=== PATIENT | female | born 1945 | race Caucasian/White ===

== ENCOUNTER 2017-06-22 08:57 | Outpatient (CLI) ==
[2014-01-21 21:22] VITALS: BMI 36.9
== END 2017-06-22 08:58 | disposition home or self-care (01) ==
LOC: RAD 08:57
PROVIDERS: ATTEND Family Medicine
DX: Z12.31 Encounter for screening mammogram for malignant neoplasm of breast (principal)
CPT/HCPCS: 77067

== ENCOUNTER 2017-08-13 10:52 | Outpatient (CLI) ==
[2014-01-21 21:22] VITALS: BMI 36.9
== END 2017-08-13 10:53 | disposition home or self-care (01) ==
LOC: LAB 10:52
PROVIDERS: ATTEND Family Medicine
DX: R19.7 Diarrhea, unspecified (principal)
CPT/HCPCS: 87493

== ENCOUNTER 2017-12-21 15:59 | Outpatient (CLI) | payer OTHER ==
[2014-01-21 21:22] VITALS: BMI 36.9
== END 2017-12-21 16:00 | disposition home or self-care (01) ==
LOC: FCC-LAB 15:59
PROVIDERS: ATTEND Family Medicine
DX: E11.9 Type 2 diabetes mellitus without complications (principal)
CPT/HCPCS: 36415; 83037

== ENCOUNTER 2017-12-31 14:00 | Outpatient (RCR) ==
[2014-01-21 21:22] VITALS: BMI 36.9
--- NOTE | 2017-12-17 11:48 | RS.OPPTEV2 ---
Date of Note: 12/15/17 Visit #: 1 Date of Evaluation: 12/15/17 Payer Source: MEDICARE Surgery Performed?: No Treatment Diagnosis: chronic low back pain, recurrent falls History of Condition/Mechanism of Injury:: pt reports she has had a long history of low back pain. pt did have a fall a couple of weeks ago caused by young granddaughter getting in her path. 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 Functional Limitations: Sleep, Reaching, Pushing, Pulling, Lifting, Carrying, Standing, Squatting, Ambulation, Community Access/Integration Current Subjective/complaints:: pt states her biggest limitation is being unable to stand or walk for more than a couple of mins due to low back pain, R worse than L. pt report she is scheduled to have R total shld replacement on . Treatment Side (optional): N/A *Precautions: try to avoid bending, lifting, and twisting Medical History Medical History: Hypertension, Diabetes, Arthritis Surgical History: Knee Replacement (RTKR), Shoulder Replacement (L total shld), Lumbar Spine (5 back surgeries), Cholecystectomy Smoking Status: Never smoker Hx Home Medications: aspirin, avapro, calcium/D3, furosemide, klor-con, vit d3, levothyroxine, metformin, atorvastatin, buspirone, vit B complex, omeprazole, duloxetine, colestipel, nucynta ER, gralise ER, zaneflex, diclofenac, citalopram , fioricet Patient's Goals: be able to stand and walk better with less pain. Pain Assessment - Pain Description Pain Location: lumbar area, R SI Pain Description: Tightness, Aching Current Pain Intensity: 1-2/10 at rest, increases to 5/10 with standing Functional Outcome Measure Oswestry LBP: 32 (64%) - G Codes & Severity Modifier G Codes & Modifier: mobility current CL. mobility goal CJ Source of G Code score: oswestry low back pain scale Observation - Observation Inspection: pt with increased hamstring and piriformis tightness R worse than L, Posture: Forward Head, Rounded Shoulders, Increased Thoracic Kyphosis, Decreased Lumbar Lordosis Handedness: Right Gait - Gait Pattern General Gait Pattern Observation: Crouched Gait, Decrease Stride Lngth (R), Decrease Stride Lngth (L) Gait Comments: pt amb with flexed posture, decreased step length, General Range of Motion: WFL's BLE. LUE WFL's. RUE shld flex limted as well as abd limited (pt scheduled to have total shoulder 02/02/18). Cervical ROM WFL's without pain Muscle Strength: LUE 4+/5 , RUE shld flex 3-/5, elbow flex/ext 4/5. BLE 4+/5 - ROM Lumbar Flexion: Hand reach to Mid-Thighs Sidebending to Left: Reach to Lateral Joint Line Sidebending to Right: Reach to Lateral Joint Line Lumbar Spine ROM Limitations: Soft Tissue Tightness, Muscle Weakness, Pain - Strength Trunk Extension: 4- Good- Trunk Flexion: 3+ Fair+ Trunk Lateral Flexion: 3+ Fair+ - Special Tests SLR Test: Positive Right Seated Dural Stretch Test: Positive Right Palpation Palpation Findings: Tenderness, Trigger Point, Muscle Guarding Comments:: pt with tenderness over R SI, trigger points also noted in R lumbosacral area, muscle guarding lumbar paraspinal muscles. Sensation - Sensation Right Upper Extremity: Intact/Normal Left Upper Extremity: Intact/Normal Right Lower Extremity: Intact/Normal Left Lower Extremity: Intact/Normal Balance - Sitting Balance Static Sitting Balance: Normal Dynamic Sitting Balance: Good - Standing Balance Static Standing Balance: Good Dynamic Standing Balance: Fair - Comments Balance Assessment Comments: pt with difficulty maintaining standing balance with sternal nudges - Heat/Cryotherapy Treatment: Cryotherapy Comments:: R lumbosacral area Interventions - Exercise/Activities/Manual Therapy Exercises/Activities: pt performed pelvic tilts, resisted hip flex, isometric hip add Manual Therapy: n/a HOME EXERCISE PROGRAM: pt given written HEP including pelvic tilts, lumbar rotation, resisted hip flex, isometric hip add. - Charges Timed Code Treatment Minutes: 56 Total Treatment Time: 62 Procedures billed for this date of service:: reginald gong cp EVALUATION COMPLEXITY LEVEL EVALUATION COMPLEXITY LEVEL: HISTORY: Medium (DM, HTN, OA, LBP), EXAM OF BODY SYSTEMS: Medium (pain, posture, strength,, balance, ), CLINICAL PRESENTATION: Medium (evolving), CLINICAL DECISION MAKING: Medium Assessment Assessment: pt presents with increased muscle tightness B hamstrings, piriformis R worse than L. pt also with pain R lumbar area with decreased posture, decreased endurance with standing and amb due to pain. Patient Education: Home Exercise Program, Education of Plan of Care Rehab Potential: Good Short Term Goals Goal #1: pt rate pain < 5 with activity Goal to be met by: 01/05/18 Goal #2: pt able to perform standing activities x 4 mins w/o rest w decreased pain Goal to be met by: 01/05/18 Goal #3: Decreased hamstring tightness R equal to L Goal to be met by: 01/05/18 Goal #4: pt independent with initial HEP Goal to be met by: 01/05/18 Wire Rope Sling Maker Goals Goal #1: pt rate pain <2 with activity Goal to be met by: 01/26/18 Goal #2: pt report ability to stand long enough to complete household task Goal to be met by: 01/26/18 Goal #3: pt able to amb functional community distances w rwx independently w/o rest Goal to be met by: 01/26/18 Plan - Treatment to be Provided Procedures: Therapeutic Exercises, Therapeutic Activity, Manual Therapy, Massage , Patient Education Modalities: Electrical Stimulation, Class IV Laser, Cryotherapy, Hot Packs - Treatment Plan Frequency: 2-3x week Duration: 6 weeks ORDER # VISITS AND/OR THROUGH DATE: 01/26/18 - Treatment Code (1) Recurrent falls Code(s): R29.6 - REPEATED FALLS (2) Low back pain Code(s): M54.5 - LOW BACK PAIN Qualifiers: Chronicity: chronic Back pain laterality: right Sciatica presence: without sciatica Qualified Code(s): M54.5 - Low back pain; G89.29 - Other chronic pain; G89.29 - Other chronic pain (3) Difficulty walking Code(s): R26.2 - DIFFICULTY IN WALKING, NOT ELSEWHERE CLASSIFIED
--- NOTE | 2017-12-17 14:44 | RS.CXNS ---
Date of scheduled appointment: 12/17/17 Type: Cancel
--- NOTE | 2017-12-21 11:21 | RS.CXNS ---
Date of scheduled appointment: 12/21/17 Type: Cancel
--- NOTE | 2017-12-22 10:48 | RS.CXNS ---
Date of scheduled appointment: 12/22/17 Type: Cancel Reason for Cancel/NS: Patient is in the hospital
--- NOTE | 2017-12-25 09:26 | RS.CXNS ---
Date of scheduled appointment: 12/25/17 Type: Cancel Reason for Cancel/NS: Didn't feel up to therapy today. Plan to discharge as this is her 4th cancellation and has not been seen since eval.
--- NOTE | 2017-12-28 15:15 | RS.OPPTDN ---
Subjective Date of Note: 12/28/17 Visit #: 2 Date of Evaluation: 12/15/17 Payer Source: MEDICARE Treatment Diagnosis: chronic low back pain, recurrent falls Current Subjective/complaints:: Patient says she has only gotten to try exercises once due to being in the hospital, welcoming new grandchild and babysitting. She says that she has back pain to both sides that is unchanged from eval date. *Precautions: try to avoid bending, lifting, and twisting Interventions - Exercise/Activities/Manual Therapy Exercises/Activities: Patient receives passive stretching of SKTC, HS, piriformis, fig 4, and lower trunk rotation x 3 bilaterally. She performs: QS , SAQ 1 1/2#, DF with red tband, isometric hip abd/flexion, pelvic tilts, pillow squeezes 2x10. Sitting EOB: shoulder shrugs and red tband scap retraction. Total minutes of Exercise: 38 Manual Therapy: n/a HOME EXERCISE PROGRAM: pt given written HEP including pelvic tilts, lumbar rotation, resisted hip flex, isometric hip add. - Charges Timed Code Treatment Minutes: 38 Total Treatment Time: 38 Procedures billed for this date of service:: ex3 Assessment: Patient demo tightness to bilateral HS, calves, and piriformis. She is able to rebecca therex well today with only muscle fatigue. She was instructed in proper postural techniques and HEP review. Also, safety with rollator. Patient Education: Education of diagnosis, Body/Joint mechanics, Home Exercise Program, Education of Plan of Care Patient demonstrates compliance with HEP?: Yes Short Term Goals Goal #1: pt rate pain < 5 with activity Goal to be met by: 01/05/18 Goal #2: pt able to perform standing activities x 4 mins w/o rest w decreased pain Goal to be met by: 01/05/18 Goal #3: Decreased hamstring tightness R equal to L Goal to be met by: 01/05/18 Goal #4: pt independent with initial HEP Goal to be met by: 01/05/18 Detention Goals Goal #1: pt rate pain <2 with activity Goal to be met by: 01/26/18 Goal #2: pt report ability to stand long enough to complete household task Goal to be met by: 01/26/18 Goal #3: pt able to amb functional community distances w rwx independently w/o rest Goal to be met by: 01/26/18 Plan PLAN OF CARE EXPIRES ON:: 01/26/18 ORDER # VISITS AND/OR THROUGH DATE: 01/26/18 PLAN: Patient to continue for therex to improve back pain and provide strength with bal/gait.
--- NOTE | 2017-12-31 16:32 | RS.OPPTDN ---
Subjective Date of Note: 12/31/17 Visit #: 3 Date of Evaluation: 12/15/17 Payer Source: MEDICARE Treatment Diagnosis: chronic low back pain, recurrent falls Current Subjective/complaints:: Patient says she was slightly sore in her legs after her previous session. She says she has started to consistently perform HEP. *Precautions: try to avoid bending, lifting, and twisting Pain Assessment - Pain Description Pain Location: low back Interventions - Exercise/Activities/Manual Therapy Exercises/Activities: Patient receives passive stretching of SKTC, HS, piriformis, fig 4, heel cords, and lower trunk rotation x 3 bilaterally. She performs: QS, SAQ 1 1/2#, DF with red tband, isometric hip abd/flexion, pelvic tilts, pillow squeezes 2x10. Sitting EOB: shoulder shrugs and red tband scap retraction. Standing at railing: hip abd, marching, heel raises all x 10. Total minutes of Exercise: 38 Manual Therapy: n/a HOME EXERCISE PROGRAM: pt given written HEP including pelvic tilts, lumbar rotation, resisted hip flex, isometric hip add. - Charges Timed Code Treatment Minutes: 38 Total Treatment Time: 38 Procedures billed for this date of service:: ex3 Assessment: Patient able to rebecca all therex well without increasing back or LE pain or causing LOB with dynamic activity. She is becoming more aware of HEP and appears to be motivated to improve. Patient Education: Body/Joint mechanics, Home Exercise Program Patient demonstrates compliance with HEP?: Yes Short Term Goals Goal #1: pt rate pain < 5 with activity Goal to be met by: 01/05/18 Progress towards Goal:: Progressing Goal #2: pt able to perform standing activities x 4 mins w/o rest w decreased pain Goal to be met by: 01/05/18 Progress towards Goal:: Progressing Goal #3: Decreased hamstring tightness R equal to L Goal to be met by: 01/05/18 Progress towards Goal:: Progressing Goal #4: pt independent with initial HEP Goal to be met by: 01/05/18 Account Supervisor Goals Goal #1: pt rate pain <2 with activity Goal to be met by: 01/26/18 Goal #2: pt report ability to stand long enough to complete household task Goal to be met by: 01/26/18 Goal #3: pt able to amb functional community distances w rwx independently w/o rest Goal to be met by: 01/26/18 Plan PLAN OF CARE EXPIRES ON:: 01/26/18 ORDER # VISITS AND/OR THROUGH DATE: 01/26/18 PLAN: Patient to continue for general strengthening for LE's advancing with dynamic activity.
== END 2018-01-04 23:59 ==
PROVIDERS: ATTEND Family Medicine
DX: R29.6 Repeated falls (principal); M54.5 Low back pain; M54.2 Cervicalgia; M25.511 Pain in right shoulder; G89.29 Other chronic pain

== ENCOUNTER 2018-01-07 11:24 | Outpatient (CLI) | payer OTHER ==
[2016-04-28 09:01] VITALS: BMI 36.9
== END 2018-01-07 11:25 | disposition home or self-care (01) ==
LOC: FCC-LAB 11:24
PROVIDERS: ATTEND Family Medicine
DX: R50.9 Fever, unspecified (principal); R51 Headache; R42 Dizziness and giddiness; R41.0 Disorientation, unspecified
CPT/HCPCS: 36415; 80053; 85025; 87804

== ENCOUNTER 2018-01-19 10:00 | Outpatient (RCR) ==
[2016-04-28 09:01] VITALS: BMI 36.9
--- NOTE | 2018-01-05 15:06 | RS.CXNS ---
Date of scheduled appointment: 01/05/18 Type: Cancel
--- NOTE | 2018-01-06 11:25 | RS.OPPTDN ---
Subjective Date of Note: 01/06/18 Visit #: 4 Date of Evaluation: 12/15/17 Payer Source: MEDICARE Treatment Diagnosis: chronic low back pain, recurrent falls Current Subjective/complaints:: Patient says her legs have been really sore and did not feel well yesterday. She says she nearly cancelled today, but knew she needed therapy. *Precautions: try to avoid bending, lifting, and twisting Pain Assessment - Pain Description Pain Location: bilateral LEs Interventions - Exercise/Activities/Manual Therapy Exercises/Activities: Patient receives passive stretching of SKTC, HS, piriformis, fig 4, heel cords, and lower trunk rotation x 3 bilaterally. She performs: QS, SAQ 1 1/2#, DF with red tband, isometric hip abd/flexion, pelvic tilts, pillow squeezes 2x10. Bridging, SLR (x8), hip abd with red tband all 2x10. Standing: shoulder shrugs, 1# wand for bilateral shoulder flexion and red tband scap retraction. Omitted other standing exercises due to increased LE soreness. Total minutes of Exercise: 38 Manual Therapy: n/a HOME EXERCISE PROGRAM: pt given written HEP including pelvic tilts, lumbar rotation, resisted hip flex, isometric hip add. - Charges Timed Code Treatment Minutes: 38 Total Treatment Time: 38 Procedures billed for this date of service:: ex3 Assessment: Patient experiencing elevated soreness to both legs yesterday and today. She is able to perform all therex, but needed rest time. Increased tightness to the R hamstrings and weaker with SLR today. She had some difficulty maintaining bal during standing scap retraction. Patient Education: Home Exercise Program, Education of Plan of Care Patient demonstrates compliance with HEP?: Yes Short Term Goals Goal #1: pt rate pain < 5 with activity Goal to be met by: 01/05/18 Progress towards Goal:: Progressing Goal #2: pt able to perform standing activities x 4 mins w/o rest w decreased pain Goal to be met by: 01/05/18 Progress towards Goal:: Progressing Goal #3: Decreased hamstring tightness R equal to L Goal to be met by: 01/05/18 Progress towards Goal:: Progressing Goal #4: pt independent with initial HEP Goal to be met by: 01/05/18 Resolution Expert Goals Goal #1: pt rate pain <2 with activity Goal to be met by: 01/26/18 Goal #2: pt report ability to stand long enough to complete household task Goal to be met by: 01/26/18 Goal #3: pt able to amb functional community distances w rwx independently w/o rest Goal to be met by: 01/26/18 Plan PLAN OF CARE EXPIRES ON:: 01/26/18 ORDER # VISITS AND/OR THROUGH DATE: 01/26/18 PLAN: Patient to continue with progressive therex to bilateral LE's to improve bal and strength.
--- NOTE | 2018-01-07 14:25 | RS.CXNS ---
Date of scheduled appointment: 01/07/18 Type: No Show
--- NOTE | 2018-01-12 13:11 | RS.OPPTDN ---
Subjective Date of Note: 01/12/18 Visit #: 4 Date of Evaluation: 12/15/17 Payer Source: MEDICARE Treatment Diagnosis: chronic low back pain, recurrent falls Current Subjective/complaints:: Patient says she was sick last week and unable to attend. She reports her back is less painful and feels stronger in her legs. She states she is able to stand a little longer in her kitchen and working on laundry more. *Precautions: try to avoid bending, lifting, and twisting Interventions - Exercise/Activities/Manual Therapy Exercises/Activities: Patient receives passive stretching of SKTC, HS, piriformis, fig 4, heel cords, and lower trunk rotation x 3 bilaterally. She performs: QS, SAQ increased to 2#, DF increased to green tband, isometric hip abd/flexion, pelvic tilts, pillow squeezes 2x10. Bridging, SLR (x10), hip abd increased to green tband all 2x10. Standing: shoulder shrugs, 1# wand for bilateral shoulder flexion and red tband scap retraction. Standing at rail: marching, heel raises, hip abd, minisquats x 10. Total minutes of Exercise: 38 Manual Therapy: n/a HOME EXERCISE PROGRAM: pt given written HEP including pelvic tilts, lumbar rotation, resisted hip flex, isometric hip add. - Charges Timed Code Treatment Minutes: 38 Total Treatment Time: 38 Procedures billed for this date of service:: ex3 Assessment: Patient demo improved bal during all standing exercises and back pain is reduced allowing such activities as well as improved ease with household tasks. She demo increased strength progressing therex in the dept. Patient Education: Education of diagnosis, Body/Joint mechanics, Home Exercise Program, Home Safety, Education of Plan of Care Patient demonstrates compliance with HEP?: Yes Short Term Goals Goal #1: pt rate pain < 5 with activity Goal to be met by: 01/05/18 Progress towards Goal:: Progressing Goal #2: pt able to perform standing activities x 4 mins w/o rest w decreased pain Goal to be met by: 01/05/18 Progress towards Goal:: Progressing Goal #3: Decreased hamstring tightness R equal to L Goal to be met by: 01/05/18 Progress towards Goal:: Progressing Goal #4: pt independent with initial HEP Goal to be met by: 01/05/18 Line Locator Goals Goal #1: pt rate pain <2 with activity Goal to be met by: 01/26/18 Goal #2: pt report ability to stand long enough to complete household task Goal to be met by: 01/26/18 Goal #3: pt able to amb functional community distances w rwx independently w/o rest Goal to be met by: 01/26/18 Plan PLAN OF CARE EXPIRES ON:: 01/26/18 ORDER # VISITS AND/OR THROUGH DATE: 01/26/18 PLAN: Patient to continue BIW for progressive therex
--- NOTE | 2018-01-14 15:34 | RS.OPPTDN ---
Subjective Date of Note: 01/14/18 Visit #: 5 Date of Evaluation: 12/15/17 Payer Source: MEDICARE Treatment Diagnosis: chronic low back pain, recurrent falls Current Subjective/complaints:: Patient says she is gaining strength. She reports feeling therapy is helping her and she is continuing to work on HEP. *Precautions: try to avoid bending, lifting, and twisting Interventions - Exercise/Activities/Manual Therapy Exercises/Activities: Patient receives passive stretching of SKTC, HS, piriformis, fig 4, heel cords, and lower trunk rotation x 3 bilaterally. She performs: QS, SAQ increased to 2#, DF increased to green tband, isometric hip abd/flexion, pelvic tilts, pillow squeezes 2x10. Bridging, SLR 2x10), hip abd increased to green tband all 2x10. Standing: shoulder shrugs, increased to 2# wand for bilateral shoulder flexion and red tband scap retraction. LAQ 2#, hip flexion 2# x 10. Standing at rail: marching, heel raises, hip abd, minisquats x 10. Total minutes of Exercise: 38 Manual Therapy: n/a HOME EXERCISE PROGRAM: pt given written HEP including pelvic tilts, lumbar rotation, resisted hip flex, isometric hip add. - Charges Timed Code Treatment Minutes: 38 Total Treatment Time: 38 Procedures billed for this date of service:: ex3 Assessment: Patient improving with progressive exercises well. She demo improved ease with all therex. She is amb more steadily and having less back pain. Patient Education: Home Exercise Program, Home Safety, Education of Plan of Care Patient demonstrates compliance with HEP?: Yes Short Term Goals Goal #1: pt rate pain < 5 with activity Goal to be met by: 01/05/18 Progress towards Goal:: Met Goal #2: pt able to perform standing activities x 4 mins w/o rest w decreased pain Goal to be met by: 01/05/18 Progress towards Goal:: Met Goal #3: Decreased hamstring tightness R equal to L Goal to be met by: 01/05/18 Progress towards Goal:: Progressing Goal #4: pt independent with initial HEP Goal to be met by: 01/05/18 Progress towards Goal:: Progressing Senior Quality Assurance Specialist Goals Goal #1: pt rate pain <2 with activity Goal to be met by: 01/26/18 Goal #2: pt report ability to stand long enough to complete household task Goal to be met by: 01/26/18 Goal #3: pt able to amb functional community distances w rwx independently w/o rest Goal to be met by: 01/26/18 Plan PLAN OF CARE EXPIRES ON:: 01/26/18 ORDER # VISITS AND/OR THROUGH DATE: 01/26/18 PLAN: Patient to continue BIW for progressive therex
--- NOTE | 2018-01-19 11:36 | RS.OPPTDN ---
Subjective Date of Note: 01/19/18 Visit #: 6 Date of Evaluation: 12/15/17 Payer Source: MEDICARE Treatment Diagnosis: chronic low back pain, recurrent falls Current Subjective/complaints:: Patient says that she is working on exercises at home. She reports feeling stronger, but her back intermittently flares up. *Precautions: try to avoid bending, lifting, and twisting Interventions - Exercise/Activities/Manual Therapy Exercises/Activities: Patient continues with passive stretching of SKTC, HS, piriformis, fig 4, heel cords, and lower trunk rotation x 3 bilaterally. She performs: QS, SAQ increased to 2 1/2#, DF with green tband, isometric hip abd/ flexion, pelvic tilts, pillow squeezes 2x10. Bridging, SLR 2x10), hip abd green tband all 2x10. Standing: shoulder shrugs, increased to 2# wand for bilateral shoulder flexion and red tband scap retraction. LAQ 2#, hip flexion 2 # x 10. Standing at rail: marching, heel raises, hip abd, minisquats x 10. Made new handouts of exercises for patient per request. Gave green tband for home. Total minutes of Exercise: 38 Manual Therapy: n/a HOME EXERCISE PROGRAM: pt given written HEP including pelvic tilts, lumbar rotation, resisted hip flex, isometric hip add. - Charges Timed Code Treatment Minutes: 38 Total Treatment Time: 38 Procedures billed for this date of service:: ex3 Assessment: Patient demo good hamstring flexibility now near normal comparisons. She demo 4+/5 strength for hips and knees today. Patient requests and is attentive to HEP and her progress. She self corrects posture at [facility] and is improving on activities involving arms overhead. She should benefit from further strengthening and bal exercises. Patient Education: Home Exercise Program Patient demonstrates compliance with HEP?: Yes Short Term Goals Goal #1: pt rate pain < 5 with activity Goal to be met by: 01/05/18 Progress towards Goal:: Met Goal #2: pt able to perform standing activities x 4 mins w/o rest w decreased pain Goal to be met by: 01/05/18 Progress towards Goal:: Met Goal #3: Decreased hamstring tightness R equal to L Goal to be met by: 01/05/18 Progress towards Goal:: Partially Met Goal #4: pt independent with initial HEP Goal to be met by: 01/05/18 Progress towards Goal:: Progressing Ship Engineer Goals Goal #1: pt rate pain <2 with activity Goal to be met by: 01/26/18 Goal #2: pt report ability to stand long enough to complete household task Goal to be met by: 01/26/18 Progress towards goal: Progressing Goal #3: pt able to amb functional community distances w rwx independently w/o rest Goal to be met by: 01/26/18 Plan PLAN OF CARE EXPIRES ON:: 01/26/18 ORDER # VISITS AND/OR THROUGH DATE: 01/26/18 PLAN: Patient to continue x 2 more visits per medicare dates.
--- NOTE | 2018-01-22 13:21 | RS.CXNS ---
Date of scheduled appointment: 01/22/18 Type: Cancel Reason for Cancel/NS: Patient cx due to [facility]
--- NOTE | 2018-02-05 13:35 | RS.OPPTDC ---
Date of Discharge: 01/19/18 Date of Evaluation: 12/15/17 Number of Visits: 6 Treatment Diagnosis: chronic low back pain, recurrent falls Current Level of Function: pt has cancelled 7 times throughout her POC. Pt has demonstrated improvement in oswestryto 26 or 52%. Hamstring length has improved to have R equal to L. pt improved with trunk stability and standing tolerance. Current Complaints/Gains: pt reports continues to have pain with prolonged walking or standing. Pt reports she is able to attend grandchildren's activities more often with less difficulty Pain Assessment - Pain Description Pain Location: low back pain Pain Description: Aching, Chronic Other Comments regarding Pain:: Reports pain is decreasing Functional Outcome Measure Oswestry LBP: 26 (52%) - G Codes & Severity Modifier G Codes & Modifier: mobility dc CK. mobility goal CJ Source of G Code score: oswestry low back pain scale Observation - Observation Posture: Rounded Shoulders, Increased Thoracic Kyphosis, Decreased Lumbar Lordosis Gait - Gait Pattern General Gait Pattern Observation: No Deviations/Normal General Range of Motion: WFL's Muscle Strength: WFL's Interventions - Exercise/Activities/Manual Therapy Exercises/Activities: n/a Manual Therapy: n/a HOME EXERCISE PROGRAM: pt given written HEP including pelvic tilts, lumbar rotation, resisted hip flex, isometric hip add. - Charges Timed Code Treatment Minutes: n/a Total Treatment Time: n/a Procedures billed for this date of service:: n/a Assessment Assessment: pt met STG 1, 2, 3 and progressing toward remaining goals. pt progress limited due to multiple cancelled visits. Patient Education: Home Exercise Program, Education of Plan of Care Rehab Potential: Good Short Term Goals Goal #1: pt rate pain < 5 with activity Goal to be met by: 01/05/18 Progress towards Goal:: Met Goal #2: pt able to perform standing activities x 4 mins w/o rest w decreased pain Goal to be met by: 01/05/18 Progress towards Goal:: Met Goal #3: Decreased hamstring tightness R equal to L Goal to be met by: 01/05/18 Progress towards Goal:: Met Goal #4: pt independent with initial HEP Goal to be met by: 01/05/18 Progress towards Goal:: Progressing Senior Care Goals Goal #1: pt rate pain <2 with activity Goal to be met by: 01/26/18 Progress towards goal: Progressing Goal #2: pt report ability to stand long enough to complete household task Goal to be met by: 01/26/18 Progress towards goal: Progressing Goal #3: pt able to amb functional community distances w rwx independently w/o rest Goal to be met by: 01/26/18 Progress towards goal: Progressing Plan Comments: pt reached max rehab potential at this time, limited due to pt multiple visit cancellations
== END 2018-02-04 23:59 ==
PROVIDERS: ATTEND Family Medicine
DX: R29.6 Repeated falls (principal); M54.5 Low back pain; R26.2 Difficulty in walking, not elsewhere classified; M54.2 Cervicalgia; M25.511 Pain in right shoulder; G89.29 Other chronic pain

== ENCOUNTER 2018-05-24 10:45 | Outpatient (CLI) ==
[2016-04-28 09:01] VITALS: BMI 36.9
== END 2018-05-24 10:46 | disposition home or self-care (01) ==
LOC: FCC-LAB 10:45
PROVIDERS: ATTEND Family Medicine
DX: E03.9 Hypothyroidism, unspecified (principal); R79.89 Other specified abnormal findings of blood chemistry; M25.511 Pain in right shoulder; R53.82 Chronic fatigue, unspecified
CPT/HCPCS: 36415; 80053; 84443; 85025

== ENCOUNTER 2018-10-27 14:34 | Outpatient (CLI) ==
[2016-04-28 09:01] VITALS: BMI 36.9
== END 2018-10-27 14:35 | disposition home or self-care (01) ==
LOC: RHC-LAB 14:34 → FCC-LAB 14:35
PROVIDERS: ATTEND Family Medicine
DX: E03.9 Hypothyroidism, unspecified (principal); E11.9 Type 2 diabetes mellitus without complications; G43.009 Migraine without aura, not intractable, without status migrainosus; I10 Essential (primary) hypertension
CPT/HCPCS: 36415; 80053; 83036; 84443; 85025

== ENCOUNTER 2018-11-02 08:59 | Outpatient (RCR) ==
[2016-04-28 09:01] VITALS: BMI 36.9
== END 2018-11-04 23:59 ==
LOC: NEWBEG 08:59
PROVIDERS: ATTEND Psychiatry & Neurology Psychiatry
DX: Z00.00 Encounter for general adult medical examination without abnormal findings (principal)

== ENCOUNTER 2018-11-12 11:53 | Outpatient (CLI) ==
[2016-04-28 09:01] VITALS: BMI 36.9
== END 2018-11-12 11:54 | disposition home or self-care (01) ==
LOC: RHC-LAB 11:53 → FCC-LAB 11:54
PROVIDERS: ATTEND Family Medicine
DX: S30.811A Abrasion of abdominal wall, initial encounter (principal)
CPT/HCPCS: 87070; 90853; 99214

== ENCOUNTER 2018-12-01 10:00 | Outpatient (RCR) ==
[2016-04-28 09:01] VITALS: BMI 36.9
== END 2018-12-05 23:59 ==
LOC: NEWBEG 10:00
PROVIDERS: ATTEND Psychiatry & Neurology Psychiatry
DX: F33.0 Major depressive disorder, recurrent, mild (principal); F41.9 Anxiety disorder, unspecified
CPT/HCPCS: 90792; 90853; 99213; 99214

== ENCOUNTER 2019-01-03 10:00 | Outpatient (RCR) ==
[2016-04-28 09:01] VITALS: BMI 36.9
== END 2019-01-04 23:59 ==
LOC: NEWBEG 10:00
PROVIDERS: ATTEND Psychiatry & Neurology Psychiatry
DX: F33.0 Major depressive disorder, recurrent, mild (principal); F41.9 Anxiety disorder, unspecified
CPT/HCPCS: 90853; 99214

== ENCOUNTER 2019-01-25 10:51 | Outpatient (CLI) ==
[2016-04-28 09:01] VITALS: BMI 36.9
== END 2019-01-25 10:52 | disposition home or self-care (01) ==
LOC: RHC-LAB 10:51 → FCC-LAB 10:52
PROVIDERS: ATTEND Family Medicine
DX: E11.9 Type 2 diabetes mellitus without complications (principal); D64.9 Anemia, unspecified; Z79.899 Other long term (current) drug therapy
CPT/HCPCS: 36415; 80053; 85025

== ENCOUNTER 2019-02-04 10:00 | Outpatient (RCR) ==
[2016-04-28 09:01] VITALS: BMI 36.9
== END 2019-02-04 23:59 ==
LOC: NEWBEG 10:00
PROVIDERS: ATTEND Psychiatry & Neurology Psychiatry
DX: F33.0 Major depressive disorder, recurrent, mild (principal); F41.9 Anxiety disorder, unspecified
CPT/HCPCS: 90834; 90853; 99213

== ENCOUNTER 2019-05-06 10:00 | Outpatient (RCR) | payer OTHER ==
[2016-04-28 09:01] VITALS: BMI 36.9
== END 2019-05-07 23:59 ==
LOC: NEWBEG 10:00
PROVIDERS: ATTEND Psychiatry & Neurology Psychiatry
DX: F33.0 Major depressive disorder, recurrent, mild (principal); F41.9 Anxiety disorder, unspecified
CPT/HCPCS: 90832; 90834; 90837; 90853; 99213

== ENCOUNTER 2024-07-10 07:49 | Observation (INO) ==
[2024-07-10] MEDS ORDERED: SODIUM CHLORIDE IV ONE (07:54)
[2024-07-10] MEDS ORDERED: ZOSYN IV ONE (07:54)
--- NOTE | 2024-07-10 07:59 | ED.PDOC ---
General ED Provider: Dr. MERVIN BETANCUR MD Chief Complaint: Fever Stated Complaint: Patient is a 79-year-old female that reported to the emergency department via EMS for cough, generalized weakness, and fever. Patient stated that she was diagnosed on Thursday approximately 3 days ago with pneumonia. Patient stated that she is taking her medications and not gotten any better. Patient stated that she also had a bout of diarrhea. Patient denied any blood or mucus in the stool. Patient stated that she is continue to have a productive cough with SOB. Patient stated that she has not been around any other contacts that she knows are sick. Patient states that nothing makes her symptoms worse or better. Patient denies any chest pain, vomiting, dizziness, syncope, loss of consciousness, or any other acute symptoms not mentioned in HPI. Patient's O2 sat on room air is 97%. Patient's heart rate 60. Patient's respirations are 18. Patient blood pressure is 191/79. Patient's GCS is 15. Time Seen by Provider: 07/10/24 07:54 Mode of Arrival: Ambulance Information Source: Patient and EMT Exam Limitations: No limitations Primary Care Provider: PILAR BALDERAS MD Nursing and Triage Documentation Reviewed and Agree: Yes Does Patient Take Opioids?: No Is Patient Opioid Naive?: No What is Opioid Naive?: *Opioid Naive implies the patient is not already taking opioids or not chronically receiving opioids on a daily basis. *PRN dosing is not "usually" associated with tolerance. *Patients are at higher risk of over-sedation and aspiration. Is Patient Opioid Tolerant?: No What is Opioid Tolerant?: *Opioid Tolerance implies less than the expected response to an opioid. *Acquired tolerance is defined by the patient taking 60mg of oral morphine daily (or equianalgesic dose of another opioid) for 1 week or more. *Often associated with chronic pain. *May take more than usual dose to achieve desired pain control. Review of Systems Review Of Systems Constitutional: Reports Fever Eyes: Reports No symptoms Ears, Nose, Mouth, Throat: Reports No symptoms Respiratory: Reports Cough Cardiac: Reports No symptoms GI: Reports Diarrhea : Reports No symptoms Musculoskeletal: Reports No symptoms Skin: Reports No symptoms Neurological: Reports No symptoms Endocrine: Reports No symptoms Hematologic/Lymphatic: Reports No symptoms All Other Systems: Reviewed and Negative [facility] Medical History Bunion, right M21.611 - Bunion of right foot (ICD-10) BMI 31.0-31.9,adult Z68.31 - Body mass index [BMI] 31.0-31.9, adult (ICD-10) Diabetic foot infection Stable 02/08/24. E11.628 - Type 2 diabetes mellitus with other skin complications (ICD-10) L08.9 - Local infection of the skin and subcutaneous tissue, unspecified (ICD-10) BMI 34.0-34.9,adult Z68.34 - Body mass index [BMI] 34.0-34.9, adult (ICD-10) BMI 35.0-35.9,adult Z68.35 - Body mass index [BMI] 35.0-35.9, adult (ICD-10) Fusion of spine M43.20 - Fusion of spine, site unspecified (ICD-10) Back injury S39.92XA - Unspecified injury of lower back, initial encounter (ICD-10) Close exposure to 2018 novel coronavirus Z20.822 - Contact with and (suspected) exposure to COVID-19 (ICD-10) BMI 36.0-36.9,adult Z68.36 - Body mass index [BMI] 36.0-36.9, adult (ICD-10) Chronic, continuous use of opioids F11.90 - Opioid use, unspecified, uncomplicated (ICD-10) Encounter for pre-operative cardiovascular clearance Z01.810 - Encounter for preprocedural cardiovascular examination (ICD-10) [place] L84 - Corns and callosities (ICD-10) Onychomycosis B35.1 - Tinea unguium (ICD-10) Otalgia H92.09 - Otalgia, unspecified ear (ICD-10) Otalgia H92.09 - Otalgia, unspecified ear (ICD-10) Encounter for removal of skin lesion L98.9 - Disorder of the skin and subcutaneous tissue, unspecified (ICD-10) Irritable bowel syndrome K58.9 - Irritable bowel syndrome without diarrhea (ICD-10) Hypertension I10 - Essential (primary) hypertension (ICD-10) Gastroesophageal reflux disease K21.9 - Gastro-esophageal reflux disease without esophagitis (ICD-10) Sinusitis J32.9 - Chronic sinusitis, unspecified (ICD-10) Chronic neck and back pain Ortho 05/18/18, pain mangement Nuceynta ER BID. M54.2 - Cervicalgia (ICD-10) Hypothyroidism E03.9 - Hypothyroidism, unspecified (ICD-10) Hyperlipidemia E78.5 - Hyperlipidemia, unspecified (ICD-10) Posterior vitreous detachment (04/12/19) 04/12/19 Dr. Cha Left eye H43.819 - Vitreous degeneration, unspecified eye (ICD-10) Diabetes mellitus E11.9 - Type 2 diabetes mellitus without complications (ICD-10) Sacroiliitis right sided. Referred to Dr. Delcid for possible injections by [facility]. M46.1 - Sacroiliitis, not elsewhere classified (ICD-10) Bilateral cataracts (04/12/19) Dr. Cha. H26.9 - Unspecified cataract (ICD-10) Family History Mother Diabetes Cancer Heart attack Thyroid condition FATHER Diabetes Aneurysm SISTER Cushings syndrome SISTER Thyroid condition Other Cancer of vulva Social History Smoking and tobacco status: Never smoker Second hand smoke exposure: No Alcohol intake: never Substance use type: does not use Jennyfer/religious: SABIANIST Special jennyfer needs: No Agree to transfusion: Yes Adopted: No Caregiver/support person: No Foster care: No Household members: spouse Housing: house Marital status: M Lives independently: Yes Number of children: 4 Number of grandchildren: 10 Highest education level completed: some college, no degree Financial difficulty paying for basics: not very hard service: No Current occupational status: retired and disabled 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, 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 Pets and animals: No Leisure activites: art, reading and other History of recent travel: Yes (December [facility], June [facility] ) Sexually active: No Do you think of yourself as: straight/heterosexual Current gender identity: female Seatbelt use: always Drives intoxicated or rides with intoxicated 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 Current diet type/program: regular Well-balanced diet: daily Caffeine: Yes Eating out: 1-3 times/week Reads food labels: seldom or never During the past year weight has: remained stable Water heater temperature set < 120 degrees: Yes Working smoke detector in home: Yes Fire extinguisher in home: Yes Carbon monoxide detector in home: Yes Firearms in home: Yes Firearms unloaded and locked: Yes What type of physical activity do you participate in?: none Physical activity functional status: restricted by assistive devices How many days of moderate to strenuous exercise, like a brisk walk, did you do in the last 7 days: 0 Surgical History H/O colonoscopy Z98.890 - Other specified postprocedural states (ICD-10) H/O: hysterectomy Z90.710 - Acquired absence of both cervix and uterus (ICD-10) H/O shoulder replacement Z96.619 - Presence of unspecified artificial shoulder joint (ICD-10) H/O laminectomy Z98.890 - Other specified postprocedural states (ICD-10) H/O cataract removal with insertion of prosthetic lens Z98.49 - Cataract extraction status, unspecified eye (ICD-10) Z96.1 - Presence of intraocular lens (ICD-10) History of partial hysterectomy Z90.711 - Acquired absence of uterus with remaining cervical stump (ICD-10) Spinal surgery in prior 3 months Z98.890 - Other specified postprocedural states (ICD-10) History of right knee joint replacement Z96.651 - Presence of right artificial knee joint (ICD-10) H/O shoulder replacement LEFT AND RIGHT SHOULDER Z96.619 - Presence of unspecified artificial shoulder joint (ICD-10) History of back surgery OCT 2020 Z98.89 - Other specified postprocedural states (ICD-10) ovaries were left History of tubal ligation Z98.51 - Tubal ligation status (ICD-10) (04/27/18) Dr. James. Right side. D/C to [facility] for strengthening. POST OP eval 05/17/18. Cubital tunnel +. Status post cholecystectomy Z90.49 - Acquired absence of other specified parts of digestive tract (ICD- 10) Cataract extraction and insertion of intraocular lens (05/17/19) Female Reproductive History Menstrual Age of Menarche: 11 Hx Hysterectomy: Yes (PARTIAL- UTERUS age 38 ) Hx Tubal Ligation: Yes (2002 done) Physical Exam Physical Exam Appearance: Reports Ill-appearing, No pain distress and Obese Ill-appearing: Mild Pain Distress: None Eyes: Reports NENITA, EOMI and Conjunctiva clear ENT: Reports Ears normal, Nose normal and Oropharynx normal Neck: Supple Respiratory: Reports Airway patent, Breath sounds clear, Breath sounds equal, Respirations nonlabored, Crackles (Crackles heard bilaterally in the mid to lower lung espana. ) and Wheezes (Mild wheezing auscultated on the RIGHT mid to lower lung espana. ) Cardiovascular: Reports RRR, Pulses normal, No rub and No murmur GI/: Reports Soft, Nontender, No masses and Bowel sounds normal Musculoskeletal: Reports Normal strength, ROM intact and No edema Skin: Reports Warm, Dry and Normal color Neurological: Reports Sensation intact, Motor intact, Cranial nerves intact, Alert and Oriented Psychiatric: Reports Affect appropriate and Mood appropriate Course Course 07/10/24 09:00 07/10/24 09:00 Orders, Labs, Meds: Lab Review 07/10/24 07/10/24 07/10/24 08:26 09:00 09:17 WBC 12.76 H RBC 3.98 L Hgb 10.9 L Hct 32.6 L MCV 81.9 MCH 27.4 MCHC 33.4 RDW Coeff of Carlo 14.4 Plt Count 281 Immature Gran % (Auto) 2.0 Neut % (Auto) 75.4 H Lymph % (Auto) 11.3 Glenn % (Auto) 10.2 H Eos % (Auto) 0.9 Baso % (Auto) 0.2 Neut # (Auto) 9.6 H Lymph # (Auto) 1.4 Glenn # (Auto) 1.3 Eos # (Auto) 0.1 Baso # (Auto) 0.0 Immature Gran # (Auto) 0.3 ESR Pending PT 10.2 INR 0.98 Sodium 129.8 L Potassium 3.23 L Chloride 97.1 L Carbon Dioxide 21.2 L Anion Gap 14.73 BUN 10.6 Creatinine 0.85 Estimated GFR (MDRD) 64.00 BUN/Creatinine Ratio 12.47 Glucose 101.3 Lactic Acid 0.64 L D Calcium 9.04 Magnesium 1.61 Total Bilirubin 0.77 AST 98.4 H D ALT 47.0 H D Alkaline Phosphatase 88.9 Total Protein 6.86 Albumin 3.60 Globulin 3.26 Albumin/Globulin Ratio 1.10 Urine Color Yellow Urine Clarity Clear Urine pH 6.0 Ur Specific [place] 1.015 Urine Protein 1+ H Urine Glucose (UA) Negative Urine Ketones 3+ H Urine Blood Trace-intact H Urine Nitrite Negative Urine Bilirubin 1+ H Urine Urobilinogen 0.2 Ur Leukocyte Esterase Trace H Urine Microscopic RBC 0-2 Urine Microscopic WBC 0-2 Ur Squamous Epith Cells 2-5 Influ A Molecular Assay Negative by naat Influ B Molecular Assay Negative by naat RSV Antigen Negative by naat SARS CoV-2 RNA Rapid ELISE Negative Orders Category Date Time Status NEBULIZER TREATMENT Stat CARDIO 07/10/24 08:24 Completed ED APPLY O2 .ONCE EMERGENCY 07/10/24 07:54 Active 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 APPLIED .ONCE EMERGENCY 07/10/24 07:54 Active ED IV/MEDIPORT/POWERPORT .ONCE EMERGENCY 07/10/24 07:54 Active BLOOD CULTURE (ED ONLY) Stat LAB 07/10/24 09:00 Ordered C-REACTIVE PROTEIN Stat LAB 07/10/24 09:00 Received CBC W/ AUTO DIFF Stat LAB 07/10/24 09:00 Results COMPREHENSIVE METABOLIC PANEL Stat LAB 07/10/24 09:00 Completed ESR Stat LAB 07/10/24 09:00 Results FLU A/B MOLECULAR Stat LAB 07/10/24 08:26 Completed LACTIC ACID Stat LAB 07/10/24 09:00 Completed MAGNESIUM Stat LAB 07/10/24 09:00 Completed MRSA SCREEN Routine LAB 07/10/24 08:26 Received PROCALCITONIN Stat LAB 07/10/24 09:00 Received PT WITH INR Stat LAB 07/10/24 09:00 Completed RSV Stat LAB 07/10/24 08:26 Completed SARS COV-2 RNA RAPID ELISE Stat LAB 07/10/24 08:26 Completed URINALYSIS C & S IF INDICATED Stat LAB 07/10/24 09:17 Completed 0.9 % Sodium Chloride [Saline Flush] Meds 07/10/24 07:54 Active 1 syr IVF PRN PRN Ipratropium/Albuterol Neb [Duoneb] Meds 07/10/24 08:23 Discontinued 3 ml NEB ONCE STA Methylprednisolone Sod Succ/Pf [Solu-Medrol 125 mg] Meds 07/10/24 08:23 Discontinued 125 mg IVP ONCE ONE Piperacillin Sodium/Tazobactam [Zosyn 3.375 gm] 3.375 Meds 07/10/24 08:30 Discontinued gm 0.9 % Sodium Chloride [Sodium Chloride 100Ml] 100 ml IV ONCE Sodium Chloride 0.9% [Sodium Chloride] 1,000 ml Meds 07/10/24 07:54 Discontinued IV BOLUS CHEST, 1V AP ONLY Stat RADS 07/10/24 07:54 Completed Medications Generic Name Dose Route Start Last Admin Trade Name Freq PRN Reason Stop Dose Admin Sodium Chloride 1 syr 07/10/24 07:54 07/10/24 08:47 0.9% Sodium Chloride 10 Ml Disp.Syrin IVF 1 syr PRN PRN Administration To flush IV Discontinued Medications Generic Name Dose Route Start Last Admin Trade Name Freq PRN Reason Stop Dose Admin Albuterol/Ipratropium 3 ml 07/10/24 08:23 07/10/24 08:38 Ipratropium/Albuterol Vial.Neb NEB 07/10/24 08:24 3 ml ONCE STA Administration Sodium Chloride 1,000 mls @ 1,000 mls/hr 07/10/24 07:54 07/10/24 09:05 Sodium Chloride IV 07/10/24 08:53 1,000 mls/hr BOLUS ONE Administration Piperacillin Sod/Tazobactam 100 mls @ 200 mls/hr 07/10/24 08:30 07/10/24 09:05 Sod 3.375 gm/ Sodium Chloride IV 07/10/24 08:59 200 mls/hr ONCE ONE Administration Methylprednisolone Sodium Succinate 125 mg 07/10/24 08:23 07/10/24 08:47 Methylprednisolone Sod Succ/Pf 125 Mg/2 Ml Vial IVP 07/10/24 08:24 125 mg ONCE ONE Administration Vital Signs: Temp Pulse Resp BP Pulse Ox 07/10/24 07:51 97 F L 66 20 191/79 H 95 Discharge Plan Discharge Patient Disposition: PLACED OBSERVATION Discharge Problem: CAP (community acquired pneumonia), Hypertension, Transaminitis, Acute hypokalemia, Generalized weakness Did you review [place] ORDERING MACHINE OPERATOR for ALL controlled substances?: Not Applicable ED Provider: MERVIN BETANCUR Condition: Stable Physician Progress Note: Patient is a 79-year-old female that reported to the emergency department via EMS for cough, generalized weakness,and fever. Patient stated that she was diagnosed on Thursday approximately 3 days ago with pneumonia. Patient stated that she is taking her medications and not gotten any better. Patient stated that she also had a bout of diarrhea. Patient denied any blood or mucus in the stool. Patient stated that she is continue to have a productive cough with SOB. Patient stated that she has not been around any other contacts that she knows are sick. Patient states that nothing makes her symptoms worse or better. Patient denies any chest pain, vomiting, dizziness, syncope, loss of consciousness, or any other acute symptoms not mentioned in HPI. Patient's O2 sat on room air is 97%. Patient's heart rate 60. Patient's respirations are 18. Patient blood pressure is 191/79. Patient's GCS is 15. -Will give the patient IV 1 L normal saline bolus as she has been dehydrated and had diarrhea. -Will give the patient IV Zosyn 3.375 g for her pneumonia. -Will give Duoneb and IV methylprednisolone for SOB and PNA. -Will order baseline labs. -Patient has an over 12,000 leukocytosis with neutrophil predominance. -Chest x-ray shows a right sided pneumonia and left lower lobe atelectasis or consolidation. This was interpreted by the ER physician. -Due to patient failing outpatient treatment for pneumonia will place patient on inpatient observation status. Will contact the hospitalist to confirm admission for observation and IV antibiotic treatment. -EKG shows sinus rhythm with an occasional PVC. Low QRS complexes. No acute ST elevations. Ventricular rate of 74 bpm. This was interpreted by the ER physician. -Patient has hypokalemia with a potassium of 3.23. Will give IV potassium 20 mEq once. -Patient is found to have a transaminitis. -[id number]: Spoke to REAGAN Powell, hospitalist at [facility] and discussed the patient's outpatient failure for pneumonia and need for IV antibiotics. Also discussed patient's hypokalemia. I have discussed the patient's generalized weakness and with comorbidities need for hospitalization at least observation for the time being. Patient's vital signs are stable. Discussed current treatment. Hospitalist agrees the patient needs to come in for observation at this time.
--- NOTE | 2024-07-10 08:13 | DI ---
EXAM: SINGLE VIEW CHEST XRAY. Date: 07/10/2024 Comparison: 07/08/2024 History: Cough and fever Findings: Bilateral shoulder arthroplasties and thoracolumbar fusion are again seen. There is a less er inspiration with left lower lobe atelectasis or consolidation. The cardiac silhouette and pulmona ry vasculature are normal. Impression: Left lower lobe atelectasis or consolidation.
[2024-07-10] MEDS: DUONEB NEB STA (08:38)
[2024-07-10] MEDS: SOLU-MEDROL 125 MG IVP ONE (08:47)
[2024-07-10 09:03] LABS: BASOPHILS % (AUTO) 0.2 % (0.0-3.0); EOSINOPHILS # (AUTO) 0.1 K/ul (0.0-0.7); EOSINOPHILS % (AUTO) 0.9 % (0.0-7.0); HEMATOCRIT 32.6 % (37.0-47.0); HEMOGLOBIN 10.9 g/dl (12.0-16.0); IMMATURE GRANULOCYTE # (AUTO) 0.3 (0.0-1.0); LYMPHOCYTES # (AUTO) 1.4 K/uL (0.60-3.4); LYMPHOCYTES % (AUTO) 11.3 (10.0-50.0); MEAN CORPUSCULAR HEMOGLOBIN 27.4 pg (27.0-31.0); MEAN CORPUSCULAR HGB CONC 33.4 (31.8-35.4); MEAN CORPUSCULAR VOLUME 81.9 fl (81.0-99.0); MONOCYTES # (AUTO) 1.3 K/uL (0.4-2.0); MONOCYTES % (AUTO) 10.2 (0-10); NEUTROPHILS # (AUTO) 9.6 K/ul (2.0-6.9); NEUTROPHILS % (AUTO) 75.4 % (42.2-75.2); PLATELET COUNT 281 10^3/uL (140-440); RDW COEFFICIENT OF VARIATION 14.4 % (11.6-14.8); RED BLOOD COUNT 3.98 10^6/ul (4.20-5.40); WHITE BLOOD COUNT 12.76 K/ul (4.6-10.2)
[2024-07-10 09:05] LABS: MOLECULAR FLU A NEGATIVE BY NAAT (NEGATIVE); MOLECULAR FLU B NEGATIVE BY NAAT (NEGATIVE); RSV MOLECULAR NEGATIVE BY NAAT (NEGATIVE); SARS COV-2 RNA RAPID NAAT NEGATIVE (NEGATIVE)
[2024-07-10] MEDS: SODIUM CHLORIDE 1,000 ML IV ONE (09:05)
[2024-07-10] MEDS: ZOSYN 3.375 GM 3.375 GM in SODIUM CHLORIDE 100ML 100 ML IV ONE (09:05)
[2024-07-10 09:16] LABS: PROTHROMBIN TIME 10.2 SEC (9.3-11.0)
[2024-07-10 09:19] LABS: ALBUMIN 3.6 g/dL (3.5-5.0); ALKALINE PHOSPHATASE 88.9 U/L (53-141); ASPARTATE AMINO TRANSFERASE 98.4 U/L (14-36); BILIRUBIN,TOTAL 0.77 mg/dL (0.2-1.3); BLOOD UREA NITROGEN 10.6 mg/dL (7-17); CALCIUM 9.04 mg/dL (8.4-10.2); CARBON DIOXIDE 21.2 mmol/L (22-30.0); CHLORIDE 97.1 mmol/L (98-107); CREATININE 0.85 mg/dL (0.60-1.30); GLUCOSE 101.3 mg/dL (74-106); MAGNESIUM 1.61 mg/dL (1.6-2.3); POTASSIUM 3.23 mmol/L (3.5-5.1); SODIUM 129.8 mmol/L (134.5-145); TOTAL PROTEIN 6.86 g/dL (6.3-8.2)
[2024-07-10 09:20] LABS: BILIRUBIN,URINE 1+ (NEGATIVE); CLARITY,URINE Clear (CLEAR); COLOR,URINE Yellow (YELLOW); GLUCOSE, URINE (UA) Negative (NEGATIVE); KETONES,URINE 3+ (NEGATIVE); LEUKOCYTE ESTERASE ,URINE Trace (NEGATIVE); NITRITE,URINE Negative (NEGATIVE); PROTEIN,URINE 1+ (NEGATIVE); URINE, BLOOD Trace-intact (NEGATIVE); UROBILINOGEN,URINE 0.2 (0.2)
[2024-07-10 09:25] LABS: URINE RBC, MICROSCOPIC 0-2 (0-2); URINE WBC, MICROSCOPIC 0-2 (0-2)
[2024-07-10] MEDS: POTASSIUM CHLORIDE 20 MEQ/100 ML PREMIX 20 MEQ/100 ML BAG IV ONE (09:52)
[2024-07-10] MEDS ORDERED: TYLENOL PO STA (10:07)
[2024-07-10] MEDS: ZOFRAN 4 MG/2 ML IVP STA (10:08)
[2024-07-10] MEDS: ACETAMINOPHEN 750 MG/75 ML BAG IV ONE (10:26)
--- NOTE | 2024-07-10 10:27 | PCM ---
Date of Service Date Seen by Provider: 07/10/24 Time Seen by Provider: 10:30 Admit Day/Time Admission Date: 07/10/24 Admission Time: 10:01 Reason for Admission Chief Complaint: COMMUNITY ACQUIRED PNEUMONIA, HYPOKALEMIA, Hospital Provider Hospital Provider: BHUPENDRA CORREA PA-C, [facility] Primary Care Physician Primary Care Physician: PILAR BALDERAS MD History of Present Illness History of Present Illness: Patient is an 79 year old female with pmhx of hypertension, CKD, hyperlipidemia, migraines, hypothyroidism, gerd, DMt2, who presents to ER with no improvement of pneumonia. Patient was diagnosed on 07/08 with pneumonia and discharged from ER with augmentin. She has continued to not feel well. Has had some n/v as well. Has a productive cough. CXR in ER showing LLL pna. She was given zosyn, fluids, tylenol, steroids, and a duoneb. Patient admitted to med surg. Patient once on the floor is very lethargic. Wakes up to answer questions, sometimes correctly, other times not. Then goes right back to sleep. Case Discussed With Case Discussed With: Patient's case was discussed with the ER Physicians, Dr. Wiley. [facility] Medical History Bunion, right M21.611 - Bunion of right foot (ICD-10) BMI 31.0-31.9,adult Z68.31 - Body mass index [BMI] 31.0-31.9, adult (ICD-10) Diabetic foot infection Stable 02/08/24. E11.628 - Type 2 diabetes mellitus with other skin complications (ICD-10) L08.9 - Local infection of the skin and subcutaneous tissue, unspecified (ICD-10) BMI 34.0-34.9,adult Z68.34 - Body mass index [BMI] 34.0-34.9, adult (ICD-10) BMI 35.0-35.9,adult Z68.35 - Body mass index [BMI] 35.0-35.9, adult (ICD-10) Fusion of spine M43.20 - Fusion of spine, site unspecified (ICD-10) Back injury S39.92XA - Unspecified injury of lower back, initial encounter (ICD-10) Close exposure to 2019 novel coronavirus Z20.822 - Contact with and (suspected) exposure to COVID-19 (ICD-10) BMI 36.0-36.9,adult Z68.36 - Body mass index [BMI] 36.0-36.9, adult (ICD-10) Chronic, continuous use of opioids F11.90 - Opioid use, unspecified, uncomplicated (ICD-10) Encounter for pre-operative cardiovascular clearance Z01.810 - Encounter for preprocedural cardiovascular examination (ICD-10) Cuthbert L84 - Corns and callosities (ICD-10) Onychomycosis B35.1 - Tinea unguium (ICD-10) Otalgia H92.09 - Otalgia, unspecified ear (ICD-10) Otalgia H92.09 - Otalgia, unspecified ear (ICD-10) Encounter for removal of skin lesion L98.9 - Disorder of the skin and subcutaneous tissue, unspecified (ICD-10) Irritable bowel syndrome K58.9 - Irritable bowel syndrome without diarrhea (ICD-10) Hypertension I10 - Essential (primary) hypertension (ICD-10) Gastroesophageal reflux disease K21.9 - Gastro-esophageal reflux disease without esophagitis (ICD-10) Sinusitis J32.9 - Chronic sinusitis, unspecified (ICD-10) Chronic neck and back pain Ortho 05/18/18, pain mangement Nuceynta ER BID. M54.2 - Cervicalgia (ICD-10) Hypothyroidism E03.9 - Hypothyroidism, unspecified (ICD-10) Hyperlipidemia E78.5 - Hyperlipidemia, unspecified (ICD-10) Posterior vitreous detachment (04/12/19) 04/12/19 Dr. Cha Left eye H43.819 - Vitreous degeneration, unspecified eye (ICD-10) Diabetes mellitus E11.9 - Type 2 diabetes mellitus without complications (ICD-10) Sacroiliitis right sided. Referred to Dr. Delcid for possible injections by [facility]. M46.1 - Sacroiliitis, not elsewhere classified (ICD-10) Bilateral cataracts (04/12/19) Dr. Cha. H26.9 - Unspecified cataract (ICD-10) Surgical History H/O colonoscopy Z98.890 - Other specified postprocedural states (ICD-10) H/O: hysterectomy Z90.710 - Acquired absence of both cervix and uterus (ICD-10) H/O shoulder replacement Z96.619 - Presence of unspecified artificial shoulder joint (ICD-10) H/O laminectomy Z98.890 - Other specified postprocedural states (ICD-10) H/O cataract removal with insertion of prosthetic lens Z98.49 - Cataract extraction status, unspecified eye (ICD-10) Z96.1 - Presence of intraocular lens (ICD-10) History of partial hysterectomy Z90.711 - Acquired absence of uterus with remaining cervical stump (ICD-10) Spinal surgery in prior 3 months Z98.890 - Other specified postprocedural states (ICD-10) History of right knee joint replacement Z96.651 - Presence of right artificial knee joint (ICD-10) H/O shoulder replacement LEFT AND RIGHT SHOULDER Z96.619 - Presence of unspecified artificial shoulder joint (ICD-10) History of back surgery OCT 2020 Z98.89 - Other specified postprocedural states (ICD-10) ovaries were left History of tubal ligation Z98.51 - Tubal ligation status (ICD-10) (04/27/18) Dr. James. Right side. D/C to [place] for strengthening. POST OP eval 05/17/18. Cubital tunnel +. Status post cholecystectomy Z90.49 - Acquired absence of other specified parts of digestive tract (ICD- 10) Cataract extraction and insertion of intraocular lens (05/17/19) Family History Mother Diabetes Cancer Heart attack Thyroid condition FATHER Diabetes Aneurysm SISTER Cushings syndrome SISTER Thyroid condition Other Cancer of vulva Social History Smoking and tobacco status: Never smoker Second hand smoke exposure: No Alcohol intake: never Substance use type: does not use Jennyfer/lutheran: MANDAEN Special jennyfer needs: No Agree to transfusion: Yes Adopted: No Caregiver/support person: No Foster care: No Household members: spouse Housing: house Marital status: M Lives independently: Yes Number of children: 4 Number of grandchildren: 10 Highest education level completed: some college, no degree Financial difficulty paying for basics: not very hard service: No Current occupational status: retired and disabled 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, 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 Pets and animals: No Leisure activites: art, reading and other History of recent travel: Yes ([facility], [place] [facility] ) Sexually active: No Do you think of yourself as: straight/heterosexual Current gender identity: female Seatbelt use: always Drives intoxicated or rides with intoxicated special needs bus driver: No Current diet type/program: regular Well-balanced diet: daily Caffeine: Yes Eating out: 1-3 times/week Reads food labels: seldom or never During the past year weight has: remained stable Water heater temperature set < 120 degrees: Yes Working smoke detector in home: Yes Fire extinguisher in home: Yes Carbon monoxide detector in home: Yes Firearms in home: Yes Firearms unloaded and locked: Yes What type of physical activity do you participate in?: none Physical activity functional status: restricted by assistive devices How many days of moderate to strenuous exercise, like a brisk walk, did you do in the last 7 days: 0 Allergies Allergies Allergy/AdvReac Type Severity Reaction Status Date / Time clindamycin AdvReac Mild Rash Verified 07/10/24 07:58 codeine AdvReac Mild nausea Verified 07/10/24 07:58 hydrocodone bitartrate (From AdvReac Mild nausea Verified 07/10/24 07:58 Lortab) meperidine HCl (From Demerol) AdvReac Mild rash Verified 07/10/24 07:58 Current Medications Home Medications multivitamin (Daily Multi-Vitamin tablet) 1 ea PO DAILY 12/13/15 [History Confirmed 07/10/24 Last Taken 07/07/24] aspirin 81 mg tablet,delayed release 81 mg PO DAILY 01/02/21 [History Confirmed 07/10/24 Last Taken 07/07/24] calcium carbonate (Calcium 600) 600 mg PO DAILY 01/02/21 [History Confirmed 07/10/24 Last Taken 07/07/24] cholecalciferol (vitamin D3) 50 mcg (2,000 unit) capsule 50 mcg PO DAILY 01/03/21 [History Confirmed 07/10/24 Last Taken Unknown] blood sugar diagnostic (Savvifyuch Ultra Test strips) #100 ea 02/12/22 [Rx Confirmed 07/10/24 Last Taken Unknown] trazodone 50 mg tablet 25 - 50 mg PO BEDTIME PRN insomnia 06/30/22 [History Confirmed 07/10/24 Last Taken 07/07/24] blood-glucose meter 03/18/23 [History Confirmed 07/10/24 Last Taken Unknown] dicyclomine 20 mg tablet See Rx Instructions .Route .COMPLEX #120 tabs 04/06/23 [Rx Confirmed 07/10/24 Last Taken Unknown] pen needle, diabetic 32 gauge x 5/32" (TRUEplus Pen Needle) #100 ea 05/29/23 [Rx Confirmed 07/10/24 Last Taken Unknown] buspirone 15 mg tablet See Rx Instructions .Route .COMPLEX #180 tabs 11/23/23 [Rx Confirmed 07/10/24 Last Taken 07/07/24] meclizine 25 mg tablet 6.25 mg (1/4 x 25 mg) PO TID PRN Dizziness #90 tabs 02/15/24 [Rx Confirmed 07/10/24 Last Taken Unknown] furosemide 20 mg tablet See Rx Instructions .Route .COMPLEX #90 tabs 03/07/24 [Rx Confirmed 07/10/24 Last Taken 07/07/24] atorvastatin 20 mg tablet See Rx Instructions .Route .COMPLEX #90 tabs 03/17/24 [Rx Confirmed 07/10/24 Last Taken 07/07/24] omeprazole 20 mg capsule,delayed release See Rx Instructions .Route .COMPLEX #180 caps 03/17/24 [Rx Confirmed 07/10/24 Last Taken 07/07/24] duloxetine 60 mg capsule,delayed release 60 mg PO BID MANAGED BY DR. LOC BUENO #180 caps 03/21/24 [Rx Confirmed 07/10/24 Last Taken 07/07/24] levothyroxine 50 mcg tablet 50 mcg PO DAILY 90 days #90 tab-caps 03/21/24 [Rx Confirmed 07/10/24 Last Taken 07/07/24] potassium chloride 10 mEq tablet,extended release See Rx Instructions .Route .COMPLEX #90 tabs 03/21/24 [Rx Confirmed 07/10/24 Last Taken 07/07/24] galcanezumab-gnlm 120 mg/mL subcutaneous syringe (Emgality) 240 mg (2 mL) subcut QMONTH #2 mL 04/11/24 [Rx Confirmed 07/10/24 Last Taken Unknown] rimegepant 75 mg disintegrating tablet (Nurtec ODT) 75 mg PO ONCE PRN migraine headache #16 tabs 04/11/24 [Rx Confirmed 07/10/24 Last Taken Unknown] ondansetron HCl 4 mg tablet 4 mg PO Q8H PRN Nausea #14 tabs 04/22/24 [Rx Confirmed 07/10/24 Last Taken 07/07/24] rsqstqvsjv-fneakbaulvkhs-lrykmxdv 50 mg-300 mg-40 mg capsule (Fioricet) 1 cap PO QDAY PRN pain #30 caps 06/27/24 [Rx Confirmed 07/10/24 Last Taken Unknown] pregabalin 200 mg capsule 200 mg PO BID #60 caps 06/27/24 [Rx Confirmed 07/10/24 Last Taken 07/07/24] semaglutide 2 mg/dose (8 mg/3 mL) subcutaneous pen injector (Ozempic) 2 mg (0.75 mL) subcut QWEEK 30 days #3.75 mL 06/28/24 [Rx Confirmed 07/10/24 Last Taken 06/30/24] meloxicam 7.5 mg tablet 7.5 mg PO QDAY #30 tabs 07/07/24 [Rx Confirmed 07/10/24 Last Taken 07/07/24] amoxicillin 875 mg-potassium clavulanate 125 mg tablet 1 tab PO Q12H #14 tabs 07/08/24 [Rx Confirmed 07/10/24 Last Taken 07/09/24] benzonatate 200 mg capsule 200 mg PO BID-TID PRN cough #30 caps 07/08/24 [Rx Confirmed 07/10/24 Last Taken 07/09/24] alprazolam 0.5 mg tablet (Xanax) 0.5 mg PO QDAY PRN anxiety 07/10/24 [History Confirmed 07/10/24 Last Taken Unknown] nystatin 100,000 unit/gram topical cream 1 applic topical QID PRN rash 07/10/24 [History Confirmed 07/10/24 Last Taken Unknown] Home Acetaminophen (Acetaminophen 325 Mg Tablet) 650 mg PO Q4H PRN PRN Reason: Mild Pain Albuterol/Ipratropium (Ipratropium/Albuterol Vial.Neb) 3 ml NEB RTQ6H PRN PRN Reason: Wheezing Last Admin: 07/10/24 12:28 Dose: 3 ml Alprazolam (Alprazolam 0.5 Mg Tablet) 0.5 mg PO QDAY PRN PRN Reason: Anxiety Aspirin (Aspirin 81 Mg Tablet.) 81 mg PO DAILY [facility] Atorvastatin Calcium (Atorvastatin Calcium 20 Mg Tablet) 0 mg PO .COMPLEX LAUREN Benzonatate (Benzonatate 100 Mg Capsule) 200 mg PO BID-TID PRN PRN Reason: Cough Buspirone HCl (Buspirone Hcl 10 Mg Tablet) 0 mg PO .COMPLEX LAUREN Duloxetine HCl (Duloxetine Hcl 30 Mg Capsule.) 60 mg PO BID [facility] CEFTRIAXONE/D5W 1 GM PREMIX (Rocephin 1 Gm/50 Ml D5w) 1 gm in 50 mls @ 100 mls/hr IV DAILY [facility] Stop: 07/13/24 13:59 Last Admin: 07/10/24 15:48 Dose: 100 mls/hr Sodium Chloride (Sodium Chloride) 1,000 mls @ 100 mls/hr IV .Q10H [facility] Last Admin: 07/10/24 11:37 Dose: 100 mls/hr Doxycycline Hyclate 100 mg/ (Sodium Chloride) 100 mls @ 50 mls/hr IV Q12H [facility] Stop: 07/13/24 12:59 Last Admin: 07/10/24 13:15 Dose: 50 mls/hr Levothyroxine Sodium (Levothyroxine Sodium 50 Mcg Tablet) 50 mcg PO DAILY [facility] Meclizine HCl (Meclizine Hcl 25 Mg Tablet) 6.25 mg PO TID PRN PRN Reason: Dizziness Non-Formulary Medication (Calcium Carbonate [Calcium 600]) 600 mg PO DAILY [facility] Omeprazole (Omeprazole 20 Mg Capsule.) 0 mg PO .COMPLEX [facility] Ondansetron HCl (Ondansetron Hcl/Pf 4 Mg/2 Ml Sdv) 4 mg IVP Q6H PRN PRN Reason: Nausea / Vomiting Pregabalin (Pregabalin 50 Mg Capsule) 200 mg PO BID [facility] Sodium Chloride (0.9% Sodium Chloride 10 Ml Disp.Syrin) 1 syr IVF PRN PRN PRN Reason: To flush IV Last Admin: 07/10/24 08:47 Dose: 1 syr Discontinued Medications Albuterol/Ipratropium (Ipratropium/Albuterol Vial.Neb) 3 ml NEB ONCE STA Stop: 07/10/24 08:24 Last Admin: 07/10/24 08:38 Dose: 3 ml Sodium Chloride (Sodium Chloride) 1,000 mls @ 1,000 mls/hr IV BOLUS ONE Stop: 07/10/24 08:53 Last Infusion: 07/10/24 10:10 Dose: Infused Piperacillin Sod/Tazobactam (Sod 3.375 gm/ Sodium Chloride) 100 mls @ 200 mls/ hr IV ONCE ONE Stop: 07/10/24 08:59 Last Admin: 07/10/24 09:05 Dose: 200 mls/hr Potassium Chloride (Potassium Chloride 20 Meq/100 Ml Premix) 20 meq in 100 mls @ 50 mls/hr IV ONCE ONE Stop: 07/10/24 11:33 Last Admin: 07/10/24 09:52 Dose: 50 mls/hr Acetaminophen (Acetaminophen) 750 mg in 75 mls @ 400 mls/hr IV ONCE ONE Stop: 07/10/24 10:23 Last Admin: 07/10/24 10:26 Dose: 400 mls/hr MAGNESIUM SULFATE IN WATER (Magnesium Sulf 2 G/50 Ml Bag) 2 gm in 50 mls @ 25 mls/hr IV ONCE ONE Stop: 07/10/24 15:38 Last Admin: 07/10/24 16:36 Dose: 25 mls/hr Methylprednisolone Sodium Succinate (Methylprednisolone Sod Succ/Pf 125 Mg/2 Ml Vial) 125 mg IVP ONCE ONE Stop: 07/10/24 08:24 Last Admin: 07/10/24 08:47 Dose: 125 mg Ondansetron HCl (Ondansetron Hcl/Pf 4 Mg/2 Ml Sdv) 4 mg IVP ONCE STA Stop: 07/10/24 10:01 Last Admin: 07/10/24 10:08 Dose: 4 mg Opioid Naive vs. Tolerant Does Patient Take Opioids?: No Is Patient Opioid Naive?: Yes What is Opioid Naive?: *Opioid Naive implies the patient is not already taking opioids or not chronically receiving opioids on a daily basis. *PRN dosing is not "usually" associated with tolerance. *Patients are at higher risk of over-sedation and aspiration. Is Patient Opioid Tolerant?: No What is Opioid Tolerant?: *Opioid Tolerance implies less than the expected response to an opioid. *Acquired tolerance is defined by the patient taking 60mg of oral morphine daily (or equianalgesic dose of another opioid) for 1 week or more. *Often associated with chronic pain. *May take more than usual dose to achieve desired pain control. Review of Systems Constitutional: Reports Fatigue and Weakness; Denies Fever Head: Reports Normocephalic and Atraumatic Cardiovascular: Denies Chest pain or Edema Respiratory: Reports Cough and Shortness of air Gastrointestinal: Reports Nausea, Vomiting and Diarrhea; Denies Abdominal pain or Melena Genitourinary: Denies Dysuria or Frequency Neurological: Reports Weakness Physical examination Most Recent Vital Signs: Most Recent Vital Signs Temperature 97 F L 07/10/24 07:51 Temperature Source Temporal Artery Scan 07/10/24 07:51 Pulse Rate 66 07/10/24 07:51 Respiratory Rate 20 07/10/24 07:51 Blood Pressure 191/79 H 07/10/24 07:51 O2 Sat by Pulse Oximetry 95 07/10/24 07:51 Height 5 ft 3 in 07/10/24 07:51 Weight 78 kg 07/10/24 07:51 Appearance: Positive No Apparent Distress and Other (+lethargic, oriented to person and place, falls asleep intermittently during conversation) Skin: Positive Bazine, Warm and Good Turgor; Negative Rashes HEENT: Positive Normocephalic and Atraumatic Neck: Positive Supple and Midline Trachea Chest/Lungs: Positive Symmetrical With Equal Breath Sounds and Rhonci (mild, LLL ); Negative Rales or Wheezes Heart: Positive RRR GI/: Positive Soft, Nontender, Bowel Sounds Normal and No Distention Extremities: Negative Edema Neurological: Positive Other (+generalized weakness, unable to fully assess neuro exam as patient is falling asleep during exam. ); Negative Alert or Sebastian ented Labs This Visit Labs This Visit: Labs This Visit 07/10/24 07/10/24 07/10/24 08:26 09:00 09:17 WBC 12.76 H RBC 3.98 L Hgb 10.9 L Hct 32.6 L MCV 81.9 MCH 27.4 MCHC 33.4 RDW Coeff of Carlo 14.4 Plt Count 281 Immature Gran % (Auto) 2.0 Neut % (Auto) 75.4 H Lymph % (Auto) 11.3 Adams % (Auto) 10.2 H Eos % (Auto) 0.9 Baso % (Auto) 0.2 Neut # (Auto) 9.6 H Lymph # (Auto) 1.4 Adams # (Auto) 1.3 Eos # (Auto) 0.1 Baso # (Auto) 0.0 Immature Gran # (Auto) 0.3 PT 10.2 INR 0.98 Sodium 129.8 L Potassium 3.23 L Chloride 97.1 L Carbon Dioxide 21.2 L Anion Gap 14.73 BUN 10.6 Creatinine 0.85 Estimated GFR (MDRD) 64.00 BUN/Creatinine Ratio 12.47 Glucose 101.3 Lactic Acid 0.64 L D Calcium 9.04 Magnesium 1.61 Total Bilirubin 0.77 AST 98.4 H D ALT 47.0 H D Alkaline Phosphatase 88.9 Total Protein 6.86 Albumin 3.60 Globulin 3.26 Albumin/Globulin Ratio 1.10 Urine Color Yellow Urine Clarity Clear Urine pH 6.0 Ur Specific [place]hall 1.015 Urine Protein 1+ H Urine Glucose (UA) Negative Urine Ketones 3+ H Urine Blood Trace-intact H Urine Nitrite Negative Urine Bilirubin 1+ H Urine Urobilinogen 0.2 Ur Leukocyte Esterase Trace H Urine Microscopic RBC 0-2 Urine Microscopic WBC 0-2 Ur Squamous Epith Cells 2-5 Influ A Molecular Assay Negative by naat Influ B Molecular Assay Negative by naat RSV Antigen Negative by naat SARS CoV-2 RNA Rapid ELISE Negative Imaging Imaging: EXAM: SINGLE VIEW CHEST XRAY. Date: 07/10/2024 Comparison: 07/08/2024 History: Cough and fever Findings: Bilateral shoulder arthroplasties and thoracolumbar fusion are again seen. There is a lesser inspiration with left lower lobe atelectasis or consolidation. The cardiac silhouette and pulmonary vasculature are normal. Impression: Left lower lobe atelectasis or consolidation. Review Statement Review Statement: I have independently reviewed and interpreted the labs/EKGs/imaging that were ordered by the ER provider. I have reviewed all outside records that are available currently in our EMR including imaging/notes/labs from previous visits. Plan Plan: 1. CAP, bacterial, LLL - failed outpatient antibiotics. Will do rocephin and doxy duonebs. Check strep pneumo, mrsa, and legionella especially with associ ated GI symptoms. Check ABG and ct head w/o due to lethargy. Add procal. Zofran prn for n/v. 2. Hypokalemia, mild - Replaced in ER. Recheck in AM. 3. Hyperlipidemia - Cont home meds 4. GERD - cont home meds 5. DMt2 - Humalog ss, accuchecks achs, diabetic diet when more alert 6. Hypothyroidism - Cont home meds, check tsh DVT Prophylaxis: Time Spent: Greater than 80 minutes spent with patient, 50% of the time spent with this patient was devoted to counseling and coordination of care. Admit to: Obs Discussed Plan of Care with Dr. Ivy Hernandez. Medications Medication Orders: Medications Ordered Category Date Time Status 0.9 % Sodium Chloride [Saline Flush] Meds 07/10/24 07:54 Active 1 syr IVF PRN PRN Potassium Chloride [Potassium Chloride 20 Meq/100 ml Meds 07/10/24 09:34 Active Premix] 20 meq in 100 ml IV ONCE
[2024-07-10] MEDS ORDERED: DOXYCYCLINE HYCLATE PO SCH (11:00)
[2024-07-10 11:27] LABS: ERYTHROCYTE SEDIMENTATION RATE 95 mm/hr (0-20)
[2024-07-10] MEDS: SODIUM CHLORIDE 1,000 ML IV SCH (11:37)
[2024-07-10 12:24] LABS: ABG O2 HGB 94.1 % (95-100); ABG PH 7.37 (7.35-7.45); BEecf -3.9 (-2.0-3.0); COHb 2.1 (0.5-1.5); HCO3 21.4 (21-28); MetHb 1.1 (0-1.5); TCO2 22.5 (19-24); sO2 96.1 % (94-98); tHb 11.2 g/dl (11.7-17.4)
[2024-07-10] MEDS: DUONEB NEB PRN (12:28)
[2024-07-10] MEDS: DOXY-100 100 MG in SODIUM CHLORIDE 100ML 100 ML IV SCH (13:15)
--- NOTE | 2024-07-10 14:37 | CT ---
EXAM: CT HEAD WITHOUT CONTRAST DATE: 07/10/2024 COMPARISON: MRI performed 03/03/2024 HISTORY: Altered mental status TECHNIQUE: A helical scan of the brain was performed without contrast. FINDINGS: The calvarium is intact.The paranasal sinuses and mastoid air cells are clear. There is diffuse cerebral and cerebellar volume loss with decreased attenuation in the periventricula r white matter. Stable encephalomalacia in the right occipital lobe. No abnormal intra or extra-axi al fluid, mass or mass effect is present. There is no midline shift or hydrocephalus. No large vess el infarct or hemorrhage is observed. The evans-white interface is maintained. IMPRESSION: No acute intracranial findings.Senescent changes with chronic microvascular disease. Ri ght occipital lobe encephalomalacia. All CT scans are performed using dose optimization techniques as appropriate to the performed exam an d include at least one of the following: Automated exposure control, adjustment of the mA and/or kV according t o size, and the use of iterative reconstruction technique.
[2024-07-10] MEDS: ROCEPHIN 1 GM/50 ML D5W 1 GM/50 ML BAG IV SCH (15:48)
[2024-07-10] MEDS: MAGNESIUM SULF 2 G/50 ML BAG 2 GM/50 ML PIGGYBACK IV ONE (16:36)
[2024-07-10] MEDS ORDERED: ANTIVERT PO PRN (19:08)
[2024-07-10] MEDS ORDERED: XANAX PO PRN (19:08)
[2024-07-10] MEDS ORDERED: TESSALON PERLES PO PRN (19:08)
[2024-07-10] MEDS: TORADOL IVP ONE (20:30)
[2024-07-10] MEDS: BUSPAR PO SCH (21:53)
[2024-07-10] MEDS: CYMBALTA PO SCH (21:53)
[2024-07-10] MEDS: LIPITOR PO SCH (21:54)
[2024-07-10] MEDS: PRILOSEC PO SCH (21:54)
[2024-07-10] MEDS: LYRICA PO SCH (21:54)
[2024-07-11 05:46] LABS: BASOPHILS % (AUTO) 0.1 % (0.0-3.0); IMMATURE GRANULOCYTE # (AUTO) 0.5 (0.0-1.0); LYMPHOCYTES # (AUTO) 0.8 K/uL (0.60-3.4); LYMPHOCYTES % (AUTO) 7.1 (10.0-50.0); MEAN CORPUSCULAR HEMOGLOBIN 27.4 pg (27.0-31.0); MEAN CORPUSCULAR HGB CONC 33.3 (31.8-35.4); MEAN CORPUSCULAR VOLUME 82.2 fl (81.0-99.0); MONOCYTES # (AUTO) 0.8 K/uL (0.4-2.0); MONOCYTES % (AUTO) 6.4 (0-10); NEUTROPHILS # (AUTO) 9.7 K/ul (2.0-6.9); NEUTROPHILS % (AUTO) 82.4 % (42.2-75.2); PLATELET COUNT 297 10^3/uL (140-440); RDW COEFFICIENT OF VARIATION 14.6 % (11.6-14.8); RED BLOOD COUNT 3.65 10^6/ul (4.20-5.40); WHITE BLOOD COUNT 11.76 K/ul (4.6-10.2)
[2024-07-11] MEDS: SYNTHROID PO SCH (05:46)
[2024-07-11 06:02] LABS: ALANINE AMINOTRANSFERASE 47.8 U/L (0-35); ALBUMIN 3.3 g/dL (3.5-5.0); ALKALINE PHOSPHATASE 73.6 U/L (53-141); ASPARTATE AMINO TRANSFERASE 82.3 U/L (14-36); BILIRUBIN,TOTAL 0.27 mg/dL (0.2-1.3); BLOOD UREA NITROGEN 19.9 mg/dL (7-17); CALCIUM 8.64 mg/dL (8.4-10.2); CARBON DIOXIDE 17.1 mmol/L (22-30.0); CHLORIDE 105.2 mmol/L (98-107); CREATININE 1.11 mg/dL (0.60-1.30); GLUCOSE 130.2 mg/dL (74-106); POTASSIUM 3.51 mmol/L (3.5-5.1); SODIUM 136.1 mmol/L (134.5-145); TOTAL PROTEIN 6.34 g/dL (6.3-8.2)
[2024-07-11] MEDS: TYLENOL PO PRN (07:55)
[2024-07-11] MEDS: DOXY-100 100 MG in SODIUM CHLORIDE 100ML 100 ML IV SCH (08:48)
[2024-07-11] MEDS ORDERED: NON-FORMULARY MEDICATION (Calcium Carbonate [Calcium 600] 600 mg calcium (1,500 mg) Tablet PO SCH (09:00)
[2024-07-11] MEDS: ASPIRIN EC PO SCH (09:14)
[2024-07-11] MEDS: CALCIUM 500 + VIT D 5 MCG (200 IU) TABLET PO SCH (09:15)
--- NOTE | 2024-07-11 09:40 | PCM.PROG ---
Date/Time Seen Date Seen by Provider: 07/11/24 Time Seen by Provider: 08:30 Provider [facility] Chief Complaint Chief Complaint: COMMUNITY ACQUIRED PNEUMONIA, HYPOKALEMIA, Subjective Subjective: Feeling some better today. Reports some generalized weakness. Alert and talkative with in room as well. Became hot and nauseated while provider in room shortly after finishing breakfast. Objective Appearance: Positive No Apparent Distress and Alert and Oriented x3 Chest/Lungs: Positive Symmetrical With Equal Breath Sounds and Rhonci Heart: Positive RRR and Pulses Normal GI/: Positive Soft, Nontender, Bowel Sounds Normal and No Distention Musculoskeletal: Positive Not Examined Neurological: Positive Sensation Intact, Motor intact, Alert and Oriented Vital Signs Vital Signs: Vital Signs: Last 24 Hours 07/10/24 11:03 07/10/24 11:03 07/10/24 12:00 Temperature 98.2 F Temperature Source Temporal Artery Scan Pulse Rate 62 Respiratory Rate 21 H Blood Pressure Blood Pressure Mean Blood Pressure Left Arm 166/75 Blood Pressure Location Blood Pressure Position Supine O2 Sat by Pulse Oximetry 96 Oxygen Delivery Method Room Air Room Air Room Air Height 5 ft 3 in Weight 76.9 kg Telemetry Type Telemetry Monitoring Telemetry Heart Rate Telemetry SPO2 EKG MA Interval EKG QRS Interval Telemetry Strip Reading 07/10/24 13:00 07/10/24 13:00 07/10/24 14:00 Temperature Temperature Source Pulse Rate Respiratory Rate Blood Pressure Blood Pressure Mean Blood Pressure Left Arm Blood Pressure Location Blood Pressure Position O2 Sat by Pulse Oximetry Oxygen Delivery Method Room Air Room Air Height Weight Telemetry Type Remote Telemetry Telemetry Monitoring Started Telemetry Heart Rate 70 Telemetry SPO2 94 EKG MA Interval 0.16 EKG QRS Interval 0.08 Telemetry Strip Reading SR 07/10/24 14:00 07/10/24 15:00 07/10/24 16:00 Temperature Temperature Source Pulse Rate 63 Respiratory Rate 25 H Blood Pressure 148/68 H Blood Pressure Mean 94 Blood Pressure Left Arm Blood Pressure Location Left Arm Blood Pressure Position Supine O2 Sat by Pulse Oximetry 92 L Oxygen Delivery Method Room Air Room Air Room Air Height Weight Telemetry Type Telemetry Monitoring Telemetry Heart Rate Telemetry SPO2 EKG MA Interval EKG QRS Interval Telemetry Strip Reading 07/10/24 17:00 07/10/24 17:56 07/10/24 17:56 Temperature Temperature Source Pulse Rate 65 Respiratory Rate 21 H Blood Pressure 167/75 H Blood Pressure Mean 105 Blood Pressure Left Arm Blood Pressure Location Left Arm Blood Pressure Position Supine O2 Sat by Pulse Oximetry 95 Oxygen Delivery Method Room Air Room Air Room Air Height Weight Telemetry Type Telemetry Monitoring Telemetry Heart Rate Telemetry SPO2 EKG MA Interval EKG QRS Interval Telemetry Strip Reading 07/10/24 19:00 07/10/24 19:00 07/10/24 20:00 Temperature Temperature Source Pulse Rate Respiratory Rate Blood Pressure Blood Pressure Mean Blood Pressure Left Arm Blood Pressure Location Blood Pressure Position O2 Sat by Pulse Oximetry Oxygen Delivery Method Room Air Room Air Height Weight Telemetry Type Bedside Monitor Telemetry Monitoring Continues Telemetry Heart Rate 63 Telemetry SPO2 96 EKG MA Interval 0.16 EKG QRS Interval 0.05 L Telemetry Strip Reading SR 07/10/24 20:00 07/10/24 21:00 07/10/24 21:11 Temperature 98.5 F Temperature Source Temporal Artery Scan Pulse Rate 63 Respiratory Rate 19 Blood Pressure 156/96 H Blood Pressure Mean 116 Blood Pressure Left Arm Blood Pressure Location Left Arm Blood Pressure Position Supine O2 Sat by Pulse Oximetry 93 L Oxygen Delivery Method Room Air Room Air Room Air Height Weight Telemetry Type Telemetry Monitoring Telemetry Heart Rate Telemetry SPO2 EKG MA Interval EKG QRS Interval Telemetry Strip Reading 07/10/24 22:00 07/10/24 22:41 07/11/24 00:00 Temperature Temperature Source Pulse Rate Respiratory Rate Blood Pressure Blood Pressure Mean Blood Pressure Left Arm Blood Pressure Location Blood Pressure Position O2 Sat by Pulse Oximetry Oxygen Delivery Method Room Air Room Air Room Air Height Weight Telemetry Type Telemetry Monitoring Telemetry Heart Rate Telemetry SPO2 EKG MA Interval EKG QRS Interval Telemetry Strip Reading 07/11/24 01:00 07/11/24 01:00 07/11/24 02:00 Temperature Temperature Source Pulse Rate 71 Respiratory Rate 19 Blood Pressure 164/74 H Blood Pressure Mean 104 Blood Pressure Left Arm Blood Pressure Location Right Arm Blood Pressure Position Supine O2 Sat by Pulse Oximetry 94 L Oxygen Delivery Method Room Air Room Air Height Weight Telemetry Type Bedside Monitor Telemetry Monitoring Continues Telemetry Heart Rate 83 Telemetry SPO2 96 EKG MA Interval 0.12 EKG QRS Interval 0.05 L Telemetry Strip Reading SR 07/11/24 03:00 07/11/24 04:00 07/11/24 05:00 Temperature Temperature Source Pulse Rate Respiratory Rate Blood Pressure Blood Pressure Mean Blood Pressure Left Arm Blood Pressure Location Blood Pressure Position O2 Sat by Pulse Oximetry Oxygen Delivery Method Room Air Room Air Room Air Height Weight Telemetry Type Telemetry Monitoring Telemetry Heart Rate Telemetry SPO2 EKG MA Interval EKG QRS Interval Telemetry Strip Reading 07/11/24 05:27 07/11/24 05:36 07/11/24 07:00 Temperature 97.9 F Temperature Source Temporal Artery Scan Pulse Rate 67 Respiratory Rate 17 Blood Pressure 154/65 H Blood Pressure Mean 94 Blood Pressure Left Arm Blood Pressure Location Right Arm Blood Pressure Position Supine O2 Sat by Pulse Oximetry 96 Oxygen Delivery Method Room Air Room Air Room Air Height Weight Telemetry Type Telemetry Monitoring Telemetry Heart Rate Telemetry SPO2 EKG MA Interval EKG QRS Interval Telemetry Strip Reading 07/11/24 07:00 07/11/24 08:00 07/11/24 09:00 Temperature Temperature Source Pulse Rate Respiratory Rate Blood Pressure Blood Pressure Mean Blood Pressure Left Arm Blood Pressure Location Blood Pressure Position O2 Sat by Pulse Oximetry Oxygen Delivery Method Room Air Room Air Height Weight Telemetry Type Bedside Monitor Telemetry Monitoring Continues Telemetry Heart Rate 75 Telemetry SPO2 96 EKG MA Interval 0.16 EKG QRS Interval 0.04 L Telemetry Strip Reading SR Lab Results Lab Results: Lab Results: Last 24 Hours 07/11/24 07/10/24 07/10/24 05:40 12:22 12:13 WBC 11.76 H RBC 3.65 L Hgb 10.0 L Hct 30.0 L MCV 82.2 MCH 27.4 MCHC 33.3 RDW Coeff of Carol 14.6 Plt Count 297 Immature Gran % (Auto) 4.0 Neut % (Auto) 82.4 H Lymph % (Auto) 7.1 L [place] % (Auto) 6.4 Eos % (Auto) 0.0 Baso % (Auto) 0.1 Neut # (Auto) 9.7 H Lymph # (Auto) 0.8 [place] # (Auto) 0.8 Eos # (Auto) 0.0 Baso # (Auto) 0.0 Immature Gran # (Auto) 0.5 ESR Puncture Site Lbrach Base Excess -3.9 L O2 Saturation 96.1 ABG pH 7.37 ABG pCO2 37.0 ABG pO2 85.0 ABG HCO3 21.4 ABG Total CO2 22.5 Hemoglobin 1.1 Oxyhemoglobin 94.1 L Carboxyhemoglobin 2.1 H Total Hemoglobin 11.2 L FiO2 % 21.0 Sodium 136.1 Potassium 3.51 Chloride 105.2 Carbon Dioxide 17.1 L Anion Gap 17.31 BUN 19.9 H Creatinine 1.11 Estimated GFR (MDRD) 47.00 BUN/Creatinine Ratio 17.92 Glucose 130.2 H Calcium 8.64 Total Bilirubin 0.27 AST 82.3 H ALT 47.8 H Alkaline Phosphatase 73.6 Total Protein 6.34 Albumin 3.30 L Globulin 3.04 Albumin/Globulin Ratio 1.08 Procalcitonin TSH 1.630 07/10/24 07/10/24 11:03 09:00 WBC RBC Hgb Hct MCV MCH MCHC RDW Coeff of Carlo Plt Count Immature Gran % (Auto) Neut % (Auto) Lymph % (Auto) [place] % (Auto) Eos % (Auto) Baso % (Auto) Neut # (Auto) Lymph # (Auto) [place] # (Auto) Eos # (Auto) Baso # (Auto) Immature Gran # (Auto) ESR 95 H Puncture Site Base Excess O2 Saturation ABG pH ABG pCO2 ABG pO2 ABG HCO3 ABG Total CO2 Hemoglobin Oxyhemoglobin Carboxyhemoglobin Total Hemoglobin FiO2 % Sodium Potassium Chloride Carbon Dioxide Anion Gap BUN Creatinine Estimated GFR (MDRD) BUN/Creatinine Ratio Glucose Calcium Total Bilirubin AST ALT Alkaline Phosphatase Total Protein Albumin Globulin Albumin/Globulin Ratio Procalcitonin 0.22 H 0.23 H TSH Additional Comments Additional Comments: I have independently reviewed and interpreted the labs/EKGs/imaging ordered during this hospital stay. I have reviewed outside records that are available in our EMR that pertain to medical stay including imaging/notes/labs from previous visits. Active Medications Active Medications: Medications Generic Name Dose Route Start Last Admin Trade Name Freq PRN Reason Stop Dose Admin Acetaminophen 650 mg 07/10/24 10:30 07/11/24 07:55 Acetaminophen 325 Mg Tablet PO 650 mg Q4H PRN Administration Mild Pain Albuterol/Ipratropium 3 ml 07/10/24 10:30 07/10/24 12:28 Ipratropium/Albuterol Vial.Neb NEB 3 ml RTQ6H PRN Administration Wheezing Alprazolam 0.5 mg 07/10/24 19:08 Alprazolam 0.5 Mg Tablet PO DAILY PRN ANXIETY Aspirin 81 mg 07/11/24 09:00 07/11/24 09:14 Aspirin 81 Mg Tablet. PO 81 mg DAILY LAUREN Administration Atorvastatin Calcium 20 mg 07/10/24 21:00 07/10/24 21:54 Atorvastatin Calcium 20 Mg Tablet PO Not Given BEDTIME LAUREN Benzonatate 200 mg 07/10/24 19:08 Benzonatate 100 Mg Capsule PO 2-3XD PRN Cough Buspirone HCl 15 mg 07/10/24 20:05 07/11/24 09:15 Buspirone Hcl 10 Mg Tablet PO 15 mg BID LAUREN Administration Calcium/Vitamin D 1 each 07/11/24 09:00 07/11/24 09:15 Calcium Carbonate/Vitamin D3 500 Mg/5 Mcg(200iu) 1 Each Tablet PO 1 each DAILY LAUREN Administration Duloxetine HCl 60 mg 07/10/24 21:00 07/11/24 09:15 Duloxetine Hcl 30 Mg Capsule. PO 60 mg BID LAUREN Administration CEFTRIAXONE/D5W 1 GM PREMIX 1 gm in 50 mls @ 100 mls/hr 07/10/24 14:00 07/10/24 15:48 Rocephin 1 Gm/50 Ml D5w IV 07/13/24 13:59 100 mls/hr DAILY LAUREN Administration Sodium Chloride 1,000 mls @ 100 mls/hr 07/10/24 11:30 07/11/24 04:24 Sodium Chloride IV 100 mls/hr .Q10H LAUREN Administration Doxycycline Hyclate 100 mg/ 100 mls @ 50 mls/hr 07/11/24 09:00 07/11/24 08:48 Sodium Chloride IV 07/13/24 12:59 50 mls/hr Q12HR LAUREN Administration Levothyroxine Sodium 50 mcg 07/11/24 06:30 07/11/24 05:46 Levothyroxine Sodium 50 Mcg Tablet PO 50 mcg 0630 LAUREN Administration Meclizine HCl 6.25 mg 07/10/24 19:08 Meclizine Hcl 25 Mg Tablet PO TID PRN Dizziness Omeprazole 20 mg 07/10/24 21:00 07/11/24 09:15 Omeprazole 20 Mg Capsule. PO 20 mg BID LAUREN Administration Ondansetron HCl 4 mg 07/10/24 10:30 Ondansetron Hcl/Pf 4 Mg/2 Ml Sdv IVP Q6H PRN Nausea / Vomiting Pregabalin 200 mg 07/10/24 21:00 07/11/24 09:14 Pregabalin 50 Mg Capsule PO 200 mg BID LAUREN Administration Sodium Chloride 1 syr 07/10/24 07:54 07/10/24 08:47 0.9% Sodium Chloride 10 Ml Disp.Syrin IVF 1 syr PRN PRN Administration To flush IV Plan Plan: 1. CAP, bacterial, LLL - failed outpatient antibiotics. Will do rocephin and santy pillaibs. Check strep pneumo, mrsa, and legionella especially with associated GI symptoms. CT head negative. ABG normal. Procal 0.22. Zofran prn for n/v. 2. Hypokalemia, mild - Replaced, monitor 3. Hyperlipidemia - Cont home meds 4. GERD - cont home meds 5. DMT2 - Humalog ss, accuchecks achs, diabetic diet 6. Hypothyroidism - Cont home meds, TSH stable 7. Abd pain/nausea - CT abd pelv to r/o other etiology DVT Prophylaxis: Ambulation Review Statement Review Statement: I have personally discussed and reviewed the patient's visit/currently labs/imaging/decision making with Dr. Hernandez, my supervising attending. Greater that 50 minutes spent with patient, 50% of the time spent with this patient was devoted to counseling and coordination of care.
[2024-07-11] MEDS: ZOFRAN 4 MG/2 ML IVP PRN (11:17)
--- NOTE | 2024-07-11 13:10 | RS.BEDDYS ---
Subjective Date of Evaluation: 07/11/24 Diagnosis: pneumonia Current Level of Function: Patient lives at home with her . She was brought to the hospital with pneumonia and was very lethargic. Current Diet: patient is on a regular diet but was ordered NPO due to decreased consciousness Current Subjective/complaints:: Patient is currently more alert and appropriate for a dysphagia eval. Medical History Comments:: see medical chart Hx Home Medications: see medical chart General Information General Denture Type: Full- Upper & Lower Patient Orientation: Person and Place Ability to Follow Directions: Good Is Patient able to Repeat Directions?: Yes Oral Expression Ability: No Impairment Voice Voice Quality: Normal Oral-Facial Assessment Face Facial Symmetry: Symmetrical Facial Movement: Controlled Dental/Labial Teeth Characteristics: Intact/Normal Lingual Protrusion: Normal Comments/Additional Info. Comments:: Oral function is WFL for oral consumption Food Presentation Solids Food Presented: Mechanical Soft Behaviors/Comments: Patient demonstrated no difficulty with food consistency. Food Presented: Regular Behaviors/Comments: Patient demonstrated no difficulty with food consistency. Liquids Liquid Presented: Thin Behaviors/Comments: Patient presented no difficulty or s/s of aspiration with th in liquids Recommendations: Dysphagia Evaluation Dietary Recommendations: Regular and Thin Dysphagia Swallow Precautions/Strategies: Sitting Upright (90 deg) Summary Dysphagia Evaluation Summary: Patient is safe for a regular diet and thin liquids. No further therapy is warranted at this time. Further Therapy Indicated?: No
--- NOTE | 2024-07-11 15:29 | CT ---
EXAM: CT ABDOMEN AND PELVIS WITHOUT CONTRAST HISTORY: Abdominal pain. TECHNIQUE: CT acquisition of the abdomen and pelvis from the lower thorax through the pelvis without IV contrast administration. 2-D coronal and sagittal reformatted images were obtained from the axial source images. Oral Contrast: None. CT Dose Reduction Techniques Performed: Yes. COMPARISON: 03/18/2023 FINDINGS: Visualized portions of the lower chest included in this examination of the abdomen and pelvis show co nsolidation of both lower lobes, moderate on the right and mild to moderate on the left. Stable mild enlargement of the partially visualized heart. Evaluation of the solid abdominal organs is limited without IV contrast. No obvious liver mass is id entified. No biliary tree dilatation. Cholecystectomy, again noted. The pancreas and and adrenal g lands have a normal appearance. Mild lobulation and scarring of the spleen, again noted. Stable mil d atrophy of the left kidney, and mild cortical scarring of both kidneys. No ureteral stones or hydr onephrosis. Hysterectomy, again noted. No visible adnexal mass. Small diverticulum of the proximal duodenum. Liquid stool in the colon. Colonic diverticulosis, again noted. No evidence of divertic ulitis. Normal appendix. Stable small to moderate-sized fat only containing umbilical hernia. No f ree air or free fluid. No enlarged lymph nodes are identified. Bone window images show no significant lytic or sclerotic bone lesions. Surgical fixation from T9 th rough L3, and at L5 - S1, again noted, with severe degenerative disc changes at T8-9. IMPRESSION: 1. No acute findings in the abdomen or pelvis. 2. Colonic diverticulosis, again noted. No evidence of diverticulitis. 3. Cholecystectomy and hysterectomy, as before. 4. Pneumonia of both lower lobes, right greater left. All CT scans are performed using dose optimization techniques as appropriate to the performed exam an d include at least one of the following: Automated exposure control, adjustment of the mA and/or kV according t o size, and the use of iterative reconstruction technique.
[2024-07-11] MEDS: CALMOSEPTINE OINTMENT TP SCH (18:18)
[2024-07-11] MEDS: FLORASTOR PO SCH (20:06)
[2024-07-11] MEDS: FIORICET PO ONE ×2 (22:08→22:36)
[2024-07-11] MEDS: IMODIUM PO PRN (22:37)
[2024-07-12 05:40] LABS: BASOPHILS % (AUTO) 0.4 % (0.0-3.0); EOSINOPHILS # (AUTO) 0.2 K/ul (0.0-0.7); EOSINOPHILS % (AUTO) 1.6 % (0.0-7.0); HEMATOCRIT 28.2 % (37.0-47.0); HEMOGLOBIN 9.3 g/dl (12.0-16.0); IMMATURE GRANULOCYTE # (AUTO) 0.5 (0.0-1.0); IMMATURE GRANULOCYTE % (AUTO) 4.8 % (0.0-5.0); LYMPHOCYTES # (AUTO) 1.5 K/uL (0.60-3.4); LYMPHOCYTES % (AUTO) 13.2 (10.0-50.0); MEAN CORPUSCULAR HEMOGLOBIN 27.8 pg (27.0-31.0); MEAN CORPUSCULAR VOLUME 84.4 fl (81.0-99.0); MONOCYTES # (AUTO) 1.1 K/uL (0.4-2.0); MONOCYTES % (AUTO) 9.8 (0-10); NEUTROPHILS # (AUTO) 7.9 K/ul (2.0-6.9); NEUTROPHILS % (AUTO) 70.2 % (42.2-75.2); PLATELET COUNT 322 10^3/uL (140-440); RDW COEFFICIENT OF VARIATION 15.3 % (11.6-14.8); RED BLOOD COUNT 3.34 10^6/ul (4.20-5.40); WHITE BLOOD COUNT 11.23 K/ul (4.6-10.2)
[2024-07-12 05:55] LABS: ALANINE AMINOTRANSFERASE 38.2 U/L (0-35); ALBUMIN 2.67 g/dL (3.5-5.0); ALKALINE PHOSPHATASE 67.2 U/L (53-141); ASPARTATE AMINO TRANSFERASE 35.5 U/L (14-36); BLOOD UREA NITROGEN 14.4 mg/dL (7-17); CALCIUM 8.15 mg/dL (8.4-10.2); CHLORIDE 109.1 mmol/L (98-107); CREATININE 0.97 mg/dL (0.60-1.30); GLUCOSE 108.7 mg/dL (74-106); POTASSIUM 3.14 mmol/L (3.5-5.1); SODIUM 136.5 mmol/L (134.5-145); TOTAL PROTEIN 5.44 g/dL (6.3-8.2)
[2024-07-12 05:56] LABS: BILIRUBIN,TOTAL < 0.10 mg/dL (0.2-1.3)
[2024-07-12] MEDS: K-DUR PO ONE (08:17)
--- NOTE | 2024-07-12 09:22 | DCSUM ---
Admission Date Admission Date: 07/10/24 Discharge Date Discharge Date: 07/12/24 Admission Diagnosis Admission Diagnosis: 1. CAP, bacterial, LLL 2. Hypokalemia, mild 3. Hyperlipidemia 4. GERD 5. DMt2t 6. Hypothyroidism Discharge Diagnosis Discharge Diagnosis: 1. CAP, bacterial, LLL - Improving 2. Hypokalemia, mild - Replaced 3. Hyperlipidemia - Chronic, stable 4. GERD - Chronic, stable 5. DMT2 - Chronic, stable 6. Hypothyroidism - Chronic, stable 7. Abd pain/nausea - No acute etiology Hospital Provider Hospital Provider: ELISABET HUITRON, [facility] Primary Care Physician Primary Care Physician: PILAR BALDERAS MD Summary of History and Physical Summary of History and Physical: Patient is an 79 year old female with pmhx of hypertension, CKD, hyperlipidemia, migraines, hypothyroidism, gerd, DMt2, who presents to ER with no improvement of pneumonia. Patient was diagnosed on 07/08 with pneumonia and discharged from ER with augmentin. She has continued to not feel well. Has had some n/v as well. Has a productive cough. CXR in ER showing LLL pna. She was given zosyn, fluids, tylenol, steroids, and a duoneb. Patient admitted to med surg. Patient once on the floor is very lethargic. Wakes up to answer questions, sometimes correctly, other times not. Then goes right back to sleep. Hospital Course Subjective: During stay, patient was treated for LLL bacterial pneumonia. She was given rocephin, doxy, and nebs. Strep pneumo and legionella collected and pending. MRSA completed and negative. CT head was completed due to lethargy which was negative as well as ABG which was normal. Hypokalemia was noted initially and replaced. Mildly low prior to discharge but replaced. Voiced nausea and abd pain yesterday. CT abd pelv completed and was negative for acute findings. No further abd pain and nausea. Has had diarrhea. Likely irritated from antibiotics. Discussed probiotics and may continue immodium at home. Continue to drink plenty of fluids. Patient also had urinary retention during stay. reports she is not uri nating much at home and will spend lengthy amounts of time in the restroom. Bladder scan showed >500. Crabtree catheter placed. Referral to urology sent. Appearance: Pleasant, No Apparent Distress and Alert HEENT: MMM, Supple and No JVD CVS: No Murmur and No Rubs Abdomen: Soft and Non-Tender Respiratory: No Dyspnea Extremities: No Edema Vital Signs: Most Recent Vital Signs Temperature 98.6 F 07/12/24 05:17 Temperature Source Temporal Artery Scan 07/12/24 05:17 Temperature Source Temporal Artery Scan 07/10/24 07:51 Pulse Rate 859 H 07/12/24 05:17 Respiratory Rate 18 07/12/24 05:17 Blood Pressure 117/71 07/12/24 05:17 Blood Pressure Mean 86 07/12/24 05:17 Blood Pressure Left Arm 166/75 07/10/24 11:03 Blood Pressure Location Left Arm 07/12/24 05:17 Blood Pressure Position Supine 07/12/24 01:54 O2 Sat by Pulse Oximetry 94 L 07/12/24 01:54 Oxygen Delivery Method Room Air 07/12/24 09:00 Height 5 ft 3 in 07/10/24 11:03 Weight 76.9 kg 07/10/24 11:03 Telemetry Type Remote Telemetry 07/12/24 07:00 Telemetry Monitoring Continues 07/12/24 07:00 Telemetry Heart Rate 70 07/12/24 07:00 Telemetry SPO2 96 07/11/24 07:00 EKG AK Interval 0.15 07/12/24 07:00 EKG QRS Interval 0.08 07/12/24 07:00 Telemetry Strip Reading NSR 07/12/24 07:00 Imaging: EXAM: SINGLE VIEW CHEST XRAY. Date: 07/10/2024 Comparison: 07/08/2024 History: Cough and fever Findings: Bilateral shoulder arthroplasties and thoracolumbar fusion are again seen. There is a lesser inspiration with left lower lobe atelectasis or consolidation. The cardiac silhouette and pulmonary vasculature are normal. Impression: Left lower lobe atelectasis or consolidation. EXAM: CT ABDOMEN AND PELVIS WITHOUT CONTRAST FINDINGS: Visualized portions of the lower chest included in this examination of the abdomen and pelvis show consolidation of both lower lobes, moderate on the right and mild to moderate on the left. Stable mild enlargement of the partially visualized heart. Evaluation of the solid abdominal organs is limited without IV contrast. No obvious liver mass is identified. No biliary tree dilatation. Cholecystectomy, again noted. The pancreas and and adrenal glands have a normal appearance. Mild lobulation and scarring of the spleen, again noted. Stable mild atrophy of the left kidney, and mild cortical scarring of both kidneys. No ureteral stones or hydronephrosis. Hysterectomy, again noted. No visible adnexal mass. Small diverticulum of the proximal duodenum. Liquid stool in the colon. Colonic diverticulosis, again noted. No evidence of diverticulitis. Normal appendix. Stable small to moderate-sized fat only containing umbilical hernia. No free air or free fluid. No enlarged lymph nodes are identified. Bone window images show no significant lytic or sclerotic bone lesions. Surgical fixation from T9 through L3, and at L5 - S1, again noted, with severe degenerative disc changes at T8-9. IMPRESSION: 1. No acute findings in the abdomen or pelvis. 2. Colonic diverticulosis, again noted. No evidence of diverticulitis. 3. Cholecystectomy and hysterectomy, as before. 4. Pneumonia of both lower lobes, right greater left. EXAM: CT HEAD WITHOUT CONTRAST FINDINGS: The calvarium is intact.The paranasal sinuses and mastoid air cells are clear. There is diffuse cerebral and cerebellar volume loss with decreased attenuation in the periventricular white matter. Stable encephalomalacia in the right occipital lobe. No abnormal intra or extra-axial fluid, mass or mass effect is present. There is no midline shift or hydrocephalus. No large vessel infarct or hemorrhage is observed. The evans-white interface is maintained. IMPRESSION: No acute intracranial findings.Senescent changes with chronic microvascular disease. Right occipital lobe encephalomalacia. Lab Results Last 24 Hours: 07/12/24 07/10/24 05:23 09:00 WBC 11.23 H RBC 3.34 L Hgb 9.3 L Hct 28.2 L MCV 84.4 MCH 27.8 MCHC 33.0 RDW Coeff of Carlo 15.3 H Plt Count 322 Immature Gran % (Auto) 4.8 Neut % (Auto) 70.2 Lymph % (Auto) 13.2 [place] % (Auto) 9.8 Eos % (Auto) 1.6 Baso % (Auto) 0.4 Neut # (Auto) 7.9 H Lymph # (Auto) 1.5 [place] # (Auto) 1.1 Eos # (Auto) 0.2 Baso # (Auto) 0.0 Immature Gran # (Auto) 0.5 Sodium 136.5 Potassium 3.14 L Chloride 109.1 H Carbon Dioxide 22.0 Anion Gap 8.54 BUN 14.4 Creatinine 0.97 Estimated GFR (MDRD) 55.00 BUN/Creatinine Ratio 14.84 Glucose 108.7 H Calcium 8.15 L Total Bilirubin < 0.10 L AST 35.5 D ALT 38.2 H Alkaline Phosphatase 67.2 C-Reactive Prot, Quant 290 H Total Protein 5.44 L Albumin 2.67 L Globulin 2.77 Albumin/Globulin Ratio 0.96 Discharge Instructions Discharge Planning: Discharge Planning > 40 minutes If patient is discharged with left ventricular systolic dysfunction: na Discharged with a beta jacquie? [] If no, why not? [] Discharged with an zack/arb? [] If no, why not? [] DIAGNOSIS: COMMUNITY ACQUIRED PNEUMONIA, URINARY RETENTION DIET: DIABETIC ACTIVITY: TOLERATED FOLLOW-UP WITH PCP NEXT WEEK MEDICATIONS: TAKE AUGMENTIN PREVIOUSLY PRESCRIBED - START TONIGHT AND CONTINUE FOR 4 MORE DAYS, OTHER PRESCRIPTIONS SENT TO [email or web address] 2 YOU HAVE BEEN REFERRED TO [facility]. THEY WILL BE IN CONTACT WITH YOU TO SCHEDULE AN APPOINTMENT. SHOULD YOU HAVE ANY QUESTIONS OR NEED TO CONTACT THEM, THEIR NUMBER IS [phone] Discharge Medications: Medications at Discharge (Home Meds & RX) multivitamin (Daily Multi-Vitamin tablet) 1 ea PO DAILY 12/13/15 aspirin 81 mg tablet,delayed release 81 mg PO DAILY 01/02/21 calcium carbonate (Calcium 600) 600 mg PO DAILY 01/02/21 cholecalciferol (vitamin D3) 50 mcg (2,000 unit) capsule 50 mcg PO DAILY 01/03/21 blood sugar diagnostic (OneTouch Ultra Test strips) #100 ea 02/12/22 trazodone 50 mg tablet 25 - 50 mg PO BEDTIME PRN insomnia 06/30/22 blood-glucose meter 03/18/23 dicyclomine 20 mg tablet See Rx Instructions .Route .COMPLEX #120 tabs 04/06/23 pen needle, diabetic 32 gauge x 32" (TRUEplus Pen Needle) #100 ea 05/29/23 buspirone 15 mg tablet See Rx Instructions .Route .COMPLEX #180 tabs 11/23/23 meclizine 25 mg tablet 6.25 mg (1/4 x 25 mg) PO TID PRN Dizziness #90 tabs 02/15/24 furosemide 20 mg tablet See Rx Instructions .Route .COMPLEX #90 tabs 03/07/24 atorvastatin 20 mg tablet See Rx Instructions .Route .COMPLEX #90 tabs 03/17/24 omeprazole 20 mg capsule,delayed release See Rx Instructions .Route .COMPLEX #180 caps 03/17/24 duloxetine 60 mg capsule,delayed release 60 mg PO BID MANAGED BY DR. LOC BUENO #180 caps 03/21/24 levothyroxine 50 mcg tablet 50 mcg PO DAILY 90 days #90 tab-caps 03/21/24 potassium chloride 10 mEq tablet,extended release See Rx Instructions .Route .COMPLEX #90 tabs 03/21/24 galcanezumab-gnlm 120 mg/mL subcutaneous syringe (Emgality) 240 mg (2 mL) subcut QMONTH #2 mL 04/11/24 rimegepant 75 mg disintegrating tablet (Nurtec ODT) 75 mg PO ONCE PRN migraine headache #16 tabs 04/11/24 ondansetron HCl 4 mg tablet 4 mg PO Q8H PRN Nausea #14 tabs 04/22/24 bwrfvpgaua-abhhxfujawhac-dulyibvv 50 mg-300 mg-40 mg capsule (Fioricet) 1 cap PO QDAY PRN pain #30 caps 06/27/24 pregabalin 200 mg capsule 200 mg PO BID #60 caps 06/27/24 semaglutide 2 mg/dose (8 mg/3 mL) subcutaneous pen injector (Ozempic) 2 mg (0.75 mL) subcut QWEEK 30 days #3.75 mL 06/28/24 meloxicam 7.5 mg tablet 7.5 mg PO QDAY #30 tabs 07/07/24 amoxicillin 875 mg-potassium clavulanate 125 mg tablet 1 tab PO Q12H #14 tabs 07/08/24 benzonatate 200 mg capsule 200 mg PO BID-TID PRN cough #30 caps 07/08/24 alprazolam 0.5 mg tablet (Xanax) 0.5 mg PO QDAY PRN anxiety 07/10/24 nystatin 100,000 unit/gram topical cream 1 applic topical QID PRN rash 07/10/24 Discharge Plan Discharge Discharge Orders: Discharge Patient (ONCE); Ordered 07/12/24 Ordered By: JEREMIAS HOSKINS Activity Restrictions/Additional Instructions: DIAGNOSIS: COMMUNITY ACQUIRED PNEUMONIA, URINARY RETENTION DIET: DIABETIC ACTIVITY: TOLERATED FOLLOW-UP WITH PCP NEXT WEEK MEDICATIONS: TAKE AUGMENTIN PREVIOUSLY PRESCRIBED - START TONIGHT AND CONTINUE FOR 4 MORE DAYS, [facility] YOU HAVE BEEN REFERRED TO [facility]. THEY WILL BE IN CONTACT WITH YOU TO SCHEDULE AN APPOINTMENT. SHOULD YOU HAVE ANY QUESTIONS OR NEED TO CONTACT THEM, THEIR NUMBER IS [phone] Instructions: Community Acquired Pneumonia (GEN), Chronic Urinary Retention in Women (GEN) Patient Disposition: HOME WITH FAMILY CARE Prescriptions: New loperamide [Anti-Diarrheal (loperamide)] 2 mg Tablet 2 mg PO AFTER LOOSE STOOLS PRN (Reason: loose stool) Qty: 14 0RF Saccharomyces boulardii [Florastor] 250 mg Capsule 250 mg PO BID Qty: 10 0RF doxycycline hyclate 100 mg tablet 100 mg PO BID Qty: 9 0RF Rx Instructions: Start with evening meal Continued multivitamin [Daily Multi-Vitamin] 1 EACH tablet 1 ea PO DAILY (DME) OneTouch Ultra Test Strip See Rx Instructions .ROUTE Qty: 100 0RF Rx Instructions: daily dicyclomine 20 mg tablet See Rx Instructions .ROUTE .COMPLEX Qty: 120 0RF Dose Instruction: TAKE 1 TABLET BY MOUTH FOUR TIMES A DAY NEEDED FOR ABDOMINAL PAIN, MAX DAILY DOSE: 4 Rx Instructions: TAKE 1 TABLET BY MOUTH FOUR TIMES A DAY NEEDED FOR ABDOMINAL PAIN, MAX DAILY DOSE: 4 (DME) pen needle, diabetic [TRUEplus Pen Needle] 32 gauge x 5/32" needle See Rx Instructions .ROUTE Qty: 100 2RF Rx Instructions: daily with victoza buspirone 15 mg tablet See Rx Instructions .ROUTE .COMPLEX Qty: 180 1RF Dose Instruction: TAKE 1 TABLET BY MOUTH TWICE A DAY FOR ANXIETY Rx Instructions: TAKE 1 TABLET BY MOUTH TWICE A DAY FOR ANXIETY meclizine 25 mg tablet 6.25 mg PO TID PRN (Reason: Dizziness) Qty: 90 1RF furosemide 20 mg tablet See Rx Instructions .ROUTE .COMPLEX Qty: 90 2RF Dose Instruction: TAKE 1 TABLET BY MOUTH EVERY DAY Rx Instructions: TAKE 1 TABLET BY MOUTH EVERY DAY omeprazole 20 mg capsule,delayed release(DR/EC) See Rx Instructions .ROUTE .COMPLEX Qty: 180 2RF Dose Instruction: TAKE 1 CAPSULE BY MOUTH TWICE A DAY Rx Instructions: TAKE 1 CAPSULE BY MOUTH TWICE A DAY levothyroxine 50 mcg tablet 50 mcg PO DAILY 90 Days Qty: 90 1RF potassium chloride 10 mEq tablet extended release See Rx Instructions .ROUTE .COMPLEX Qty: 90 1RF Dose Instruction: TAKE 1 TABLET BY MOUTH DAILY Rx Instructions: TAKE 1 TABLET BY MOUTH DAILY duloxetine 60 mg capsule,delayed release(DR/EC) 60 mg PO BID Qty: 180 2RF ondansetron HCl 4 mg tablet 4 mg PO Q8H PRN (Reason: Nausea) Qty: 14 0RF ouimtomwrf-yamfvyilavuos-vscr [Fioricet] 50-300-40 mg capsule 1 cap PO QDAY PRN (Reason: pain) Qty: 30 0RF Ozempic 2 mg/dose (8 mg/3 mL) pen injector 2 mg subcut QWEEK 30 Days Qty: 3.75 0RF meloxicam 7.5 mg tablet 7.5 mg PO QDAY Qty: 30 1RF benzonatate 200 mg capsule 200 mg PO BID-TID PRN (Reason: cough) Qty: 30 0RF aspirin 81 mg Tablet,Delayed Release (Dr/Ec) 81 mg PO DAILY calcium carbonate [Calcium 600] 600 mg calcium (1,500 mg) Tablet 600 mg PO DAILY cholecalciferol (vitamin D3) 50 mcg (2,000 unit) Capsule 50 mcg PO DAILY (DME) blood-glucose meter Kit See Rx Instructions .ROUTE Rx Instructions: daily alprazolam [Xanax] 0.5 mg tablet 0.5 mg PO QDAY PRN (Reason: anxiety) nystatin 100,000 unit/gram cream 1 applic topical QID PRN (Reason: rash) Rx Instructions: Yeast/pruritis. On premarin as well. amoxicillin-pot clavulanate 875-125 mg tablet 1 tab PO Q12H Qty: 9 0RF trazodone 50 mg tablet 25 - 50 mg PO BEDTIME PRN (Reason: insomnia) Rx Instructions: 25-50mg PO Nightly. pregabalin 200 mg capsule 200 mg PO BID Qty: 60 0RF Emgality Syringe 120 mg/mL syringe 240 mg subcut QMONTH Qty: 2 5RF Rx Instructions: 240mg once now. Repeat 120mg monthly. Nurtec ODT 75 mg tablet,disintegrating 75 mg PO ONCE PRN (Reason: migraine headache) Qty: 16 1RF Rx Instructions: as a single dose No Action atorvastatin 20 mg tablet See Rx Instructions .ROUTE .COMPLEX Qty: 90 2RF Dose Instruction: TAKE 1 TABLET BY MOUTH AT BEDTIME Rx Instructions: TAKE 1 TABLET BY MOUTH AT BEDTIME Did you review [place] [employer] for ALL controlled substances?: No Discussed opioids are addictive and Narcan is available by prescription or from pharmacy.: No Condition: Stable Referrals: PILAR BALDERAS MD [Primary Care Provider] - 07/18/24 2:45 pm
[2024-07-12 09:36] VITALS: PULSE 66; RESP 17; TEMP 98.2
[2024-07-12 10:07] VITALS: BP 140/80
[2024-07-12] MEDS: DOXYCYCLINE HYCLATE PO ONE (11:46)
[2024-07-12] MEDS: AUGMENTIN 875-125 MG TAB PO ONE (11:46)
[2024-07-18 08:39] LABS: SPECIMEN SOURCE URINE; STREP PNEUMO AG NEG
== END 2024-07-12 13:46 | disposition home or self-care (01) ==
LOC: ED 07:49 → SCU 07:49
PROVIDERS: ADMIT Hospitalist; ATTEND Nurse Practitioner Family